=== PATIENT | female | born 1950 | race Caucasian/White ===

== ENCOUNTER 2016-04-21 05:52 | Emergency (ER) | payer OTHER, MEDICARE ==
[2016-04-21 06:00] VITALS: BP 127/88; PULSE 87; TEMP 98.2; BMI 29.6
--- NOTE | 2016-04-21 06:15 | PDOC ---
History of Present Illness - General Chief Complaint: Laceration Stated Complaint: HEAD LAC Time Seen by Provider: 04/21/16 06:03 History Source: Patient Exam Limitations: No Limitations - History of Present Illness Initial Comments: 04/21/16 06:11 66 Y F CAD, depresion, COPD, got up to go to the BR and lost her balance. fell and hit her head, no loc, no n/v. ambulatory. got up on her own and called a friend. in the ed, in nad, ambulatory w/ normal gait Past History - Past Medical History Allergies/Adverse Reactions: Allergies Allergy/AdvReac Type Severity Reaction Status Date / Time Penicillins Allergy Severe anaphylaxis Verified 11/05/14 09:41 mirtazapine [From Remeron] Allergy Verified 11/05/14 09:41 Home Medications: Ambulatory Orders Arformoterol Tartrate [Brovana -] 1 neb NEB DAILY 05/10/13 Aspirin 81 mg PO DAILY 05/10/13 Atorvastatin Ca [Lipitor] 10 mg PO HS 05/10/13 Cholecalciferol (Vitamin D3) [Vitamin D3] 4,000 unit PO DAILY 05/10/13 Iron,Carbonyl [Feosol] 325 mg PO DAILY 05/10/13 Mometasone Furoate [Asmanex 220Mcg -] 2 inh IH DAILY 05/10/13 Duloxetine HCl [Cymbalta -] 60 mg PO BID 03/02/14 Folic Acid 0.8 mg PO DAILY 03/02/14 Gabapentin [Neurontin] 300 mg PO AM 03/02/14 Melatonin 10 mg PO HS 03/02/14 Nebivolol HCl [Bystolic] 2.5 mg PO DAILY 03/02/14 Gabapentin [Neurontin -] 400 mg PO HS 09/04/14 Trazodone HCl [Desyrel -] 50 mg PO HS tablet 09/06/14 Albuterol 0.083% Nebulizer Soldead [Ventolin 0.083% Nebulizer Soln -] 1 neb NEB DAILY 11/05/14 Albuterol Sulfate [Proair Hfa -] 1 - 2 inh PO BID 11/05/14 Calcium Carbonate/Vitamin D3 [Calcium 600 + Vit D Softgel] 1 each PO DAILY 11/05 Clonazepam 0.5 mg PO BID 11/05/14 Clonazepam 1 mg PO PRN PRN 11/05/14 Tiotropium [place] [Spiriva] 1 inh PO DAILY 11/05/14 Ziprasidone [Geodon -] 40 mg PO BID 11/05/14 Anemia: Yes (pernicious) Asthma: Yes Cancer: No Cardiac Disorders: Yes (aortic insufficiency,cad, mi) CVA: No COPD: Yes CHF: No Dementia: No Diabetes: No GI Disorders: Yes (gastritis,ibs,gerd,hiatal hernia,peptic ulcer, rectal bleeding) Disorders: No HTN: Yes Hypercholesterolemia: No Liver Disease: No Suicide Attempt (Hx): No Seizures: No Thyroid Disease: No - Surgical History Abdominal Surgery: No Appendectomy: Yes Cardiac Surgery: Yes (ANGIOPLASTY WITHOUT STENTS) Cholecystectomy: No Lung Surgery: No Neurologic Surgery: No Orthopedic Surgery: Yes (right ankle/tibia/fibula compound fracture) - Immunization History Immunization Up to Date: Yes - Psycho/Social/Smoking Cessation Hx Anxiety: Yes Suicidal Ideation: No Smoking Status: Yes Smoking History: Former smoker Years of Tobacco Use: 35 Have you smoked in the past 12 months: No Number of Cigarettes Smoked Daily: 0 If you are a former smoker, when did you quit?: 3-4 years ago Information on smoking cessation initiated: No Hx Alcohol Use: No Drug/Substance Use Hx: No Substance Use Type: None Hx Substance Use Treatment: No Review of Systems - Review of Systems Able to Perform ROS?: Yes Is the patient limited Czech proficient: No Constitutional: No: Symptoms Reported HEENTM: No: Symptoms Reported Cardiac (ROS): No: Symptoms Reported Musculoskeletal: No: Symptoms Reported Neurological: No: Symptoms reported All Other Systems: Reviewed and Negative *Physical Exam - Vital Signs Last Vital Signs Temp Pulse Resp BP Pulse Ox 98.2 F 87 20 127/88 97 04/21/16 05:58 04/21/16 05:58 04/21/16 05:58 04/21/16 05:58 04/21/16 05:58 - Physical Exam General Appearance: Yes: Nourished, Appropriately Dressed. No: Apparent Distress HEENT: positive: EOMI, MURPHY Neck: positive: Supple. negative: Tender Respiratory/Chest: positive: Lungs Clear. negative: Respiratory Distress Cardiovascular: positive: Regular Rhythm, Regular Rate Musculoskeletal: positive: Normal Inspection. negative: Vertebral Tenderness Extremity: positive: Normal Capillary Refill, Normal Range of Motion Integumentary: positive: Normal Color, Other (v-shaped superficial laceration re supracilliary region. 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 NML intact, Fully Oriented, Alert, Normal Mood/ Affect, Normal Response, Motor Strength 5/5 Procedures - Laceration/Wound Repair Right Frontal Wound Length: to 2.5 cm Wound Explored: clean Wound's Depth, Shape: superficial Irrigated w/ Saline: Yes Betadine Prep: No Wound Repaired With: Dermabond Sterile Dressing Applied: Yes *DC/Admit/Observation/Transfer Diagnosis at time of Disposition: Laceration of forehead Qualifiers: Encounter type: initial encounter Qualified Code(s): S01.81XA - Laceration without foreign body of other part of head, initial encounter - Discharge Dispostion Disposition: HOME Condition at time of disposition: Good - Referrals Referrals: Geraldine Pierre MD [Primary Care Provider] - Call tomorrow - Patient Instructions Additional Instructions: KEEP WOUND DRY FOR 48 HOURS. AFTER, REGULAR SOAP AND WATER DO NOT REMOVE STERI-STRIPS. THEY WOULD FALL ON THEIR OWN TYLENOL IF HEAD ACHE RETURN IF BLEEDING, HEAD ACHE, NAUSEA, VOMITING SEE YOUR DOCTOR WITHIN 24 HOURS
== END 2016-04-21 06:26 | disposition home or self-care (01) ==
LOC: FER 05:52
PROC: 0HQ1XZZ Repair Face Skin, External Approach (ICD-10-PCS; principal; 2016-04-21)
DX: S01.81XA Laceration without foreign body of other part of head, initial encounter (principal); W18.39XA Other fall on same level, initial encounter; Y93.89 Activity, other specified; Y92.003 Bedroom of unspecified non-institutional (private) residence as the place of occurrence of the external cause; D51.0 Vitamin B12 deficiency anemia due to intrinsic factor deficiency; J45.909 Unspecified asthma, uncomplicated; I25.2 Old myocardial infarction; I25.10 Atherosclerotic heart disease of native coronary artery without angina pectoris; I10 Essential (primary) hypertension; Z87.891 Personal history of nicotine dependence
CPT/HCPCS: 99282-25

== ENCOUNTER 2017-04-07 07:55 | Day surgery (SDC) | payer OTHER, MEDICARE ==
[2017-04-06 14:31] VITALS: BMI 28.9
[2017-04-07] MEDS ORDERED: PROPOFOL 20 ML ONE ×2 (09:15)
[2017-04-07 10:15] VITALS: TEMP 97.8
[2017-04-07 11:52] VITALS: BP 125/72; PULSE 72
--- NOTE | 2017-04-11 11:01 | PATH ---
Surgical Pathology Report Patient Name: ASHLEY MAYBERRY [facility]. Rec. #: [id number] /Age/Gender: 1950 (Age: 67) / F Account: [id number] Location: ASU-ENDOSCOPY Taken: 04/07/2017 Received: 04/07/2017 Reported: 04/11/2017 Physicians: Guillaume Dean M.D. Specimen(s) Received A: BX ILEOCECAL VALVE B: BX PROXIMAL RIGHT COLON C: BX MID RIGHT COLON Clinical History Preoperative diagnosis: Family history of colon cancer, history of colon polyps Postoperative diagnosis: Colon polyps, diverticulosis Final Diagnosis A. COLON, CECUM AND ILEOCECAL VALVE, BIOPSY: MULTIPLE PORTIONS OF TUBULAR ADENOMA. B. COLON, PROXIMAL RIGHT, BIOPSY: TUBULAR ADENOMA C. COLON, MID RIGHT, BIOPSY: COLONIC MUCOSA WITH NO PATHOLOGIC CHANGES. SCANT SUBMUCOSAL TISSUE PRESENT. Comment: Recommend correlation with clinical findings and follow up as clinically indicated. Electronically Signed Jose Enrique M.D. Gross Description A. Received in formalin, labeled "biopsy ileocecal valve polyp x2" are 7 schaefer, irregular portions of soft tissue ranging from 0.2-0.3 cm. in greatest dimension. The specimens are submitted in toto in one cassette. B. Received in formalin, labeled "biopsy proximal right colon polyp" are 6 schaefer, irregular portions of soft tissue ranging from 0.1-0.4 cm. in greatest dimension. The specimens are submitted in toto in one cassette. C. Received in formalin, labeled "biopsy mid right colon" is a schaefer, irregular portion of soft tissue measuring 0.5 cm. in greatest dimension. The specimen is submitted in toto in one cassette. 04/07/201704/07/2017
== END 2017-04-07 11:40 | disposition home or self-care (01) ==
LOC: JASU-ENDO 07:55
PROVIDERS: ATTEND Internal Medicine Gastroenterology
PROC: 0DBC8ZX Excision of Ileocecal Valve, Via Natural or Artificial Opening Endoscopic, Diagnostic (ICD-10-PCS; 2017-04-07)
PROC: 0DBH8ZX Excision of Cecum, Via Natural or Artificial Opening Endoscopic, Diagnostic (ICD-10-PCS; 2017-04-07)
PROC: 0DBK8ZX Excision of Ascending Colon, Via Natural or Artificial Opening Endoscopic, Diagnostic (ICD-10-PCS; principal; 2017-04-07 09:30)
DX: Z12.11 Encounter for screening for malignant neoplasm of colon (principal); Z80.0 Family history of malignant neoplasm of digestive organs; Z86.010 Personal history of colon polyps; K63.5 Polyp of colon; K57.30 Diverticulosis of large intestine without perforation or abscess without bleeding; K64.8 Other hemorrhoids
CPT/HCPCS: 88305-TC

== ENCOUNTER 2017-06-19 14:13 | Emergency (ER) | payer OTHER, MEDICARE ==
[2017-06-19 14:24] VITALS: TEMP 97.3; BMI 68.0
--- NOTE | 2017-06-19 14:26 | PDOC ---
Rapid Medical Evaluation Time Seen by Provider: 06/19/17 14:19 Medical Evaluation: Allergies Allergy/AdvReac Type Severity Reaction Status Date / Time Penicillins Allergy Severe anaphylaxis Verified 06/19/17 14:18 mirtazapine [From Remeron] Allergy Verified 06/19/17 14:18 03 14:19 I have performed a brief in-person evaluation of this patient. This patient presents with a chief complaint of left knee pain x 4 days Sent from [facility] urgent care for admission, as per her primary physician Pertinent physical exam findings: NAD unlabored breathing left knee , warm and tender to the touch, palpable cyst on medial aspect of left knee I have ordered the following: The patient has disc of xray and ultrasound of left knee on person ordered labs only and iv access The patient will proceed to the ED for further evaluation.
[2017-06-19 14:45] LABS: BASO % 0.9 % (0-2.0); EOS % 2.3 % (0-4.5); HEMATOCRIT 37.7 % (32.4-45.2); HEMOGLOBIN 12.8 GM/dL (10.7-15.3); LYMPH % 25.3 % (8-40); MCH 29.7 pg (25.7-33.7); MCHC 33.9 g/dl (32.0-36.0); MEAN CELL VOLUME 87.9 fl (80-96); MEAN PLT VOLUME 8.1 fl (7.5-11.1); MONO % 8.4 % (3.8-10.2); NEUT % 63.1 % (42.8-82.8); PLATELET COUNT 342 K/MM3 (134-434); RBC 4.29 M/mm3 (3.60-5.2); RDW 13.9 % (11.6-15.6); WHITE BLOOD COUNT 8.6 K/mm3 (4.0-10.0)
[2017-06-19 15:12] LABS: ALBUMIN 3.6 g/dl (3.4-5.0); ALK PHOS 82 U/L (45-117); ANION GAP 11 (8-16); BILIRUBIN,TOTAL 0.4 mg/dL (0.2-1.0); BLOOD UREA NITROGEN 11 mg/dL (7-18); CALCIUM 9.2 mg/dL (8.5-10.1); CHLORIDE 103 mmol/L (98-107); CO2 26 mmol/L (21-32); CREATININE 0.8 mg/dL (0.55-1.02); GLUCOSE,RANDOM 81 mg/dL (74-106); POTASSIUM 4.3 mmol/L (3.5-5.1); SGOT/AST 19 U/L (15-37); SGPT/ALT 18 U/L (12-78); SODIUM 140 mmol/L (136-145); TOT PROT 6.4 g/dl (6.4-8.2)
--- NOTE | 2017-06-19 16:38 | PDOC ---
History of Present Illness - General History Source: Patient Exam Limitations: No Limitations - History of Present Illness Initial Comments: 06/19/17 16:43 The patient is a year old female, with a significant past medical history of hypertension, hyperlipidemia, CAD (on aspirin) s/p MT/stent pre-1999 , COPD, post-op DVT, CHF, anxiety, and depression, who presents to the emergency department via EMS with, pain to her left knee. She describes her knee pain to be chronic, however, worsening today and radiating down and to the back of her leg. She reports going to Urgent Care earlier today and had an ultrasound done which was clear for DVTs. She reports the doctors at urgent care transferred her for admission and further evaluation due to her inability to ambulate or put weight on her knee for periods of time without pain. She denies recent fevers, chills, headache or dizziness. She denies recent nausea, vomit, diarrhea or constipation. She denies recent dysuria, frequency, urgency or hematuria. She denies recent chest pain or shortness of breath. Allergies: Penicillins, Mirtazapine Primary Care Physician: Dr. Geraldine Pierre <Robert Savage - Last Filed: 06/19/17 16:43> - General History Source: Patient Exam Limitations: No Limitations <Lata Allen - Last Filed: 06/19/17 17:36> - General Chief Complaint: Pain Stated Complaint: LEG PAIN Time Seen by Provider: 06/19/17 14:19 Past History <Robert Savage - Last Filed: 06/19/17 16:43> - Past Medical History Anemia: Yes Asthma: Yes Cancer: No Cardiac Disorders: Yes (aortic insufficiency,cad, mi, CAD) CVA: No COPD: Yes CHF: No Dementia: No Diabetes: No GI Disorders: Yes (PEPTIC ULCER, HIATAL HERNIA, IBS, COLON POLYPS, GERD) Disorders: No HTN: Yes Hypercholesterolemia: No Liver Disease: No Seizures: No Thyroid Disease: No - Surgical History Abdominal Surgery: No Appendectomy: Yes Cardiac Surgery: Yes (ANGIOPLASTY WITHOUT STENTS) Cholecystectomy: No Lung Surgery: No Neurologic Surgery: No Orthopedic Surgery: Yes (right ankle/tibia/fibula compound fracture) - Immunization History Immunization Up to Date: Yes - Suicide/Smoking/Psychosocial Hx Smoking Status: Yes Smoking History: Former smoker Years of Tobacco Use: 35 Have you smoked in the past 12 months: No Number of Cigarettes Smoked Daily: 0 If you are a former smoker, when did you quit?: 3-4 years ago Information on smoking cessation initiated: No Hx Alcohol Use: No Drug/Substance Use Hx: No Substance Use Type: None Hx Substance Use Treatment: No <ChandaannmarieLata - Last Filed: 06/19/17 17:36> - Past Medical History Allergies/Adverse Reactions: Allergies Allergy/AdvReac Type Severity Reaction Status Date / Time Penicillins Allergy Severe anaphylaxis Verified 06/19/17 14:18 mirtazapine [From Remeron] Allergy Verified 06/19/17 14:18 Home Medications: Ambulatory Orders Aspirin 81 mg PO DAILY 05/10/13 Atorvastatin Ca [Lipitor] 10 mg PO HS 05/10/13 Iron,Carbonyl [Feosol] 325 mg PO DAILY 05/10/13 Mometasone Furoate [Asmanex 220Mcg -] 2 inh IH DAILY 05/10/13 Duloxetine HCl [Cymbalta -] 60 mg PO BID 03/02/14 Gabapentin [Neurontin] 300 mg PO AM 03/02/14 Gabapentin [Neurontin -] 400 mg PO HS 09/04/14 traZODone HCL [Desyrel -] 50 mg PO HS tablet 09/06/14 Albuterol 0.083% Nebulizer [place] [Ventolin 0.083% Nebulizer Soln -] 1 neb NEB DAILY 11/05/14 Albuterol Sulfate [Proair Hfa -] 1 - 2 inh PO BID 11/05/14 Clonazepam 0.1 mg PO BID 11/05/14 Tiotropium [place] [Spiriva] 1 inh PO DAILY 11/05/14 Ziprasidone [Geodon -] 40 mg PO BID 11/05/14 Ranolazine [Ranexa] 500 mg PO DAILY 04/06/17 Calcium Carbonate [Calcium] 1,200 mg PO DAILY 04/07/17 Cholecalciferol (Vitamin D3) [Vitamin D3] 5,000 unit PO DAILY 04/07/17 Cyanocobalamin Vit B-12 Inj. [Vitamin B12 Injection -] 1,000 mcg IJ PRN Duloxetine HCl [Cymbalta -] 60 mg PO HS 12/29/17 Ferrous Sulfate [Iron] 325 mg PO DAILY 04/07/17 Folic Acid 1 mg PO DAILY 04/07/17 Thiamine HCl [Vitamin B-1] 50 mg PO DAILY 04/07/17 Review of Systems - Review of Systems Able to Perform ROS?: Yes Comments:: 06/19/17 16:44 CONSTITUTIONAL: Absent: fever, no chills, no fatigue EYES: Absent: visual changes ENT: Absent: ear pain, no sore throat CARDIOVASCULAR: Absent: chest pain, no palpitations RESPIRATORY: Absent: cough, no SOB GI: Absent: abdominal pain, no nausea, no vomiting, no constipation, no diarrhea GENITOURINARY: Absent: dysuria, no frequency, no hematuria MUSKULOSKELETAL: Present: +Left posterior knee pain. Absent: back pain SKIN: Absent: rash NEURO: Absent: headache All Other Systems: Reviewed and Negative <Robert Savage - Last Filed: 06/19/17 16:43> - Review of Systems Musculoskeletal: Yes: Joint Pain. No: Joint Swelling, Muscle Weakness, Joint Stiffness Integumentary: No: Bruising, Erythema Neurological: Yes: Weakness. No: Paresthesia, Tingling, Tremors Hematologic/Lymphatic: No: Symptoms Reported <Lata Allen - Last Filed: 06/19/17 17:36> *Physical Exam - Vital Signs Last Vital Signs Temp Pulse Resp BP Pulse Ox 97.3 F L 66 17 143/75 96 06/19/17 14:19 06/19/17 14:19 06/19/17 14:19 06/19/17 14:19 06/19/17 14:19 - Physical Exam Comments: 06/19/17 16:44 Knee: +2 Pitting edema to left foot. Tenderness to the posterior left knee. <Robert Savage - Last Filed: 06/19/17 16:43> - Vital Signs Last Vital Signs Temp Pulse Resp BP Pulse Ox 97.3 F L 66 17 143/75 96 06/19/17 14:19 06/19/17 14:19 06/19/17 14:19 06/19/17 14:19 06/19/17 14:19 - Physical Exam General Appearance: Yes: Appropriately Dressed Respiratory/Chest: positive: Lungs Clear, Normal Breath Sounds Cardiovascular: positive: Regular Rhythm, Regular Rate Musculoskeletal: positive: Decreased Range of Motion (to the left knee realted to pain. ) Extremity: positive: Normal Capillary Refill, Normal Inspection. negative: Normal Range of Motion, Swelling, Calf Tenderness, Erythema, Inflammation Integumentary: positive: Normal Color, Dry. negative: Swelling, Ecchymosis, Bruising Neurologic: positive: Alert <Lata Allen - Last Filed: 06/19/17 17:36> ED Treatment Course - LABORATORY CBC & Chemistry Diagram: 06/19/17 14:33 06/19/17 14:33 - ADDITIONAL ORDERS Additional order review: Laboratory Results 06/19/17 14:33 Sodium 140 Potassium 4.3 Chloride 103 Carbon Dioxide 26 Anion Gap 11 BUN 11 Creatinine 0.8 Creat Clearance w eGFR > 60 Random Glucose 81 Calcium 9.2 Total Bilirubin 0.4 AST 19 ALT 18 Alkaline Phosphatase 82 Total Protein 6.4 Albumin 3.6 06/19/17 14:33 RBC 4.29 MCV 87.9 MCHC 33.9 RDW 13.9 MPV 8.1 Neutrophils % 63.1 Lymphocytes % 25.3 D Monocytes % 8.4 Eosinophils % 2.3 Basophils % 0.9 <Robert Savage - Last Filed: 06/19/17 16:43> - LABORATORY CBC & Chemistry Diagram: 06/19/17 14:33 06/19/17 14:33 - ADDITIONAL ORDERS Additional order review: Laboratory Results 06/19/17 14:33 Sodium 140 Potassium 4.3 Chloride 103 Carbon Dioxide 26 Anion Gap 11 BUN 11 Creatinine 0.8 Creat Clearance w eGFR > 60 Random Glucose 81 Calcium 9.2 Total Bilirubin 0.4 AST 19 ALT 18 Alkaline Phosphatase 82 Total Protein 6.4 Albumin 3.6 06/19/17 14:33 RBC 4.29 MCV 87.9 MCHC 33.9 RDW 13.9 MPV 8.1 Neutrophils % 63.1 Lymphocytes % 25.3 D Monocytes % 8.4 Eosinophils % 2.3 Basophils % 0.9 <Lata Allen - Last Filed: 06/19/17 17:36> Medical Decision Making - Medical Decision Making 06/19/17 16:36 A/P: Patient is a 67-year-old female was transferred from urgent care via ambulance for left knee pain. Patient reports she was seen at urgent care for left posterior knee pain, ultrasound and x-ray demonstrated arthritic changes and synovial cyst, Giron's cyst. They sent her to emergency department because patient is unable to ambulate and lives alone was sent by Dr. Geraldine Pierre for admission, inability to ambulate. Only able to perform examination to legs , +2 pitting edema. Pain to left posterior knee, no fluid appreciated. After examination is deferred, patient unable to stand to be examined on examination table. Patient in wheelchair. Patient sent to main emergency department for higher level of care. 06/19/17 16:41 <Lata Allen - Last Filed: 06/19/17 17:36> *DC/Admit/Observation/Transfer - Attestations Scribe Attestion: 06/19/17 16:45 Documentation prepared by Robert Savage, acting as medical billing instructor for Lata Allen NP. <Robert Savage - Last Filed: 06/19/17 16:43> <Lata Allen - Last Filed: 06/19/17 17:36> Diagnosis at time of Disposition: Knee pain Qualifiers: Chronicity: acute Laterality: left Qualified Code(s): M25.562 - Pain in left knee - Referrals Referrals: Geraldine Pierre MD [Primary Care Provider] - - Patient Instructions - Post Discharge Activity
[2017-06-19] MEDS ORDERED: KETOROLAC TROMETHAMINE 30 MG/1 ML VIAL IVPUSH ONE (17:32)
--- NOTE | 2017-06-19 17:32 | PDOC ---
*Physical Exam - Vital Signs Last Vital Signs Temp Pulse Resp BP Pulse Ox 97.3 F L 66 17 143/75 96 06/19/17 14:19 06/19/17 14:19 06/19/17 14:19 06/19/17 14:19 06/19/17 14:19 - Physical Exam General Appearance: Yes: Appropriately Dressed. No: Apparent Distress HEENT: positive: Normal Voice Neck: positive: Supple Respiratory/Chest: negative: Respiratory Distress Extremity: positive: Normal Inspection, Tender. negative: Swelling Integumentary: positive: Dry, Warm Neurologic: positive: Fully Oriented, Alert, Normal Mood/Affect ED Treatment Course - LABORATORY CBC & Chemistry Diagram: 06/19/17 14:33 06/19/17 14:33 - ADDITIONAL ORDERS Additional order review: Laboratory Results 06/19/17 14:33 Sodium 140 Potassium 4.3 Chloride 103 Carbon Dioxide 26 Anion Gap 11 BUN 11 Creatinine 0.8 Creat Clearance w eGFR > 60 Random Glucose 81 Calcium 9.2 Total Bilirubin 0.4 AST 19 ALT 18 Alkaline Phosphatase 82 Total Protein 6.4 Albumin 3.6 06/19/17 14:33 RBC 4.29 MCV 87.9 MCHC 33.9 RDW 13.9 MPV 8.1 Neutrophils % 63.1 Lymphocytes % 25.3 D Monocytes % 8.4 Eosinophils % 2.3 Basophils % 0.9 Medical Decision Making - Medical Decision Making 06/19/17 17:28 Patient was transferred to [facility] ED from [facility] track Patient is a 67-year-old F, with past medical history of hypertension, hyperlipidemia, CAD, on aspirin, MT, COPD, uses oxygen at night only, DVT, CHF, anxiety. depression, arthritis, who was sent to ER from urgent care after being diagnosed with a giron's cyst to left knee on ultrasound after patient presented with left knee pain 4 days. Patient states she can hardly bear weight with her cane. States she cannot take any narcotics as she is a recovering alcoholic. Has not taken any pain meds at home and no pain meds was given at urgent care. Patient well-appearing, in no apparent distress with no significant swelling to right knee but has some tenderness to popliteal fossa and calf. Of note, ultrasound done in urgent care center was negative for DVT. X-ray of left knee consistent with arthritic changes as per report. Will give pain meds and reassess 06/19/17 19:00 As per ED attg, case was d/w pt's PMD, Dr Pierre, who agrees w/ pain control in ED and reassess. States if discharged, pt should go w/ rx for meloxicam and medrol dose pack. to arrange out-pt MRI 06/21/17 10:35 Pt improved, able to bear weight w/ cane and was discharge by Dr Schmidt *DC/Admit/Observation/Transfer Diagnosis at time of Disposition: Giron's cyst of knee Knee pain Qualifiers: Chronicity: acute Laterality: left Qualified Code(s): M25.562 - Pain in left knee Bakers cyst Qualifiers: Laterality: left Qualified Code(s): M71.22 - Synovial cyst of popliteal space [ Giron], left knee - Discharge Dispostion Disposition: HOME Condition at time of disposition: Stable - Prescriptions Prescriptions: Meloxicam [Mobic] 7.5 mg PO DAILY PRN #10 tablet PRN Reason: Pain Level 6-10 Methylprednisolone [Medrol Dose Noe] 4 mg PO ASDIR #21 tablet Omeprazole 20 mg PO DAILY #14 tablet.dr - Referrals Referrals: Geraldine Pierre MD [Primary Care Provider] - - Patient Instructions Printed Discharge Instructions: Alice Fragoso, DI for Giron's Cyst Additional Instructions: 1. package pick up your drugs at your pharmacy 2, call Dr Pierre's office tomorrow and they will make an orthopedist referral 3. take your medication as directed - Post Discharge Activity
[2017-06-19] MEDS ORDERED: KETOROLAC TROMETHAMINE 30 MG/1 ML VIAL ONE (17:44)
[2017-06-19 18:47] VITALS: BP 135/74; PULSE 78
[2017-06-19] MEDS ORDERED: DEXAMETHASONE SOD PHOSPHATE 20 MG/5 ML VIAL IVPB STA (18:55)
[2017-06-19] MEDS ORDERED: PANTOPRAZOLE 40 MG TABLET (FP) PO ONE (19:00)
--- NOTE | 2017-06-19 19:03 | PDOC ---
*Physical Exam - Vital Signs Last Vital Signs Temp Pulse Resp BP Pulse Ox 97.3 F L 78 16 135/74 95 06/19/17 14:19 06/19/17 18:46 06/19/17 18:46 06/19/17 18:46 06/19/17 18:46 ED Treatment Course - LABORATORY CBC & Chemistry Diagram: 06/19/17 14:33 06/19/17 14:33 - ADDITIONAL ORDERS Additional order review: Laboratory Results 06/19/17 14:33 Sodium 140 Potassium 4.3 Chloride 103 Carbon Dioxide 26 Anion Gap 11 BUN 11 Creatinine 0.8 Creat Clearance w eGFR > 60 Random Glucose 81 Calcium 9.2 Total Bilirubin 0.4 AST 19 ALT 18 Alkaline Phosphatase 82 Total Protein 6.4 Albumin 3.6 06/19/17 14:33 RBC 4.29 MCV 87.9 MCHC 33.9 RDW 13.9 MPV 8.1 Neutrophils % 63.1 Lymphocytes % 25.3 D Monocytes % 8.4 Eosinophils % 2.3 Basophils % 0.9 - Medications Given in the ED: ED Medications Discontinued Medications Generic Name Dose Route Start Last Admin Trade Name Gia PRN Reason Stop Dose Admin Ketorolac Tromethamine 30 mg 06/19/17 17:32 06/19/17 18:00 Toradol Injection - IVPUSH 06/19/17 17:33 30 mg ONCE ONE Administration *DC/Admit/Observation/Transfer Diagnosis at time of Disposition: Knee pain Qualifiers: Chronicity: acute Laterality: left Qualified Code(s): M25.562 - Pain in left knee Giron's cyst of knee Qualifiers: Laterality: left Qualified Code(s): M71.22 - Synovial cyst of popliteal space [ Giron], left knee - Discharge Dispostion Disposition: HOME Condition at time of disposition: Stable - Referrals Referrals: Geraldine Pierre MD [Primary Care Provider] - - Patient Instructions Printed Discharge Instructions: Alice Fragoso, DI for Giron's Cyst Additional Instructions: 1. sweet pickle maker your drugs at your pharmacy 2, call Dr Pierre's office tomorrow and they will make an orthopedist referral 3. take your medication as directed - Post Discharge Activity
[2017-06-19] MEDS ORDERED: PANTOPRAZOLE 40 MG TABLET (FP) ONE (19:09)
[2017-06-19] MEDS ORDERED: DEXAMETHASONE SOD PHOSPHATE 10 MG/1 ML VIAL ONE (19:09)
== END 2017-06-19 19:17 | disposition home or self-care (01) ==
LOC: JERFT 14:13 → JER 14:13
PROC: 3E033GC Introduction of Other Therapeutic Substance into Peripheral Vein, Percutaneous Approach (ICD-10-PCS; principal; 2017-06-19)
PROC: 3E0333Z Introduction of Anti-inflammatory into Peripheral Vein, Percutaneous Approach (ICD-10-PCS; 2017-06-19)
DX: M71.22 Synovial cyst of popliteal space [Baker], left knee (principal); M13.862 Other specified arthritis, left knee; I25.2 Old myocardial infarction; I25.10 Atherosclerotic heart disease of native coronary artery without angina pectoris; I10 Essential (primary) hypertension; Z95.5 Presence of coronary angioplasty implant and graft; J44.9 Chronic obstructive pulmonary disease, unspecified; I50.9 Heart failure, unspecified; Z86.718 Personal history of other venous thrombosis and embolism; Z87.19 Personal history of other diseases of the digestive system; Z79.82 Long term (current) use of aspirin
CPT/HCPCS: 36415; 80053; 85025; 96374; 96375; 99283-25

== ENCOUNTER 2018-10-15 08:09 | Inpatient (IN) | payer OTHER, MEDICARE ==
--- NOTE | 2018-10-15 07:46 | HP ---
Admitting History and Physical - Admission Chief Complaint: left knee osteoarthritis x years History of Present Illness: 68 year old female presents in regard to their left knee. Longstanding history of left knee osteoarthritis. Patient complains of pain, limited ROM, difficulty ambulating and difficulty completing ADLs. Patient has failed conservative treatment measures including PO medications, injections, exercise programs and activity modification. At this point, patient wishes to proceed with surgical intervention, a left total knee arthroplasty - MAKOplasty. - Past Medical History Cardiovascular: Yes: CAD, Deep Vein Thrombosis, CA Pulmonary: Yes: COPD, O2 Dependent Renal/: Yes: Renal Calculi Musculoskeletal: Yes: Osteoarthritis - Past Surgical History Past Surgical History: Yes: Stent Additional Past Surgical History: See written history & physical for additional surgical history. - Smoking History Smoking history: Former smoker Have you smoked in the past 12 months: No Aproximately how many cigarettes per day: 0 If you are a former smoker, when did you quit?: 2008 - Alcohol/Substance Use Hx Alcohol Use: No (RECOVERY X 1984) History of Substance Use: reports: None - Social History ADL: Independent History of Recent Travel: No Home Medications - Allergies Allergies/Adverse Reactions: Allergies Allergy/AdvReac Type Severity Reaction Status Date / Time Penicillins Allergy Severe anaphylaxis Verified 06/19/17 14:18 mirtazapine [From Remeron] AdvReac Intermediate AGGRESSIVE Verified 10/04/18 12: 05 WITH HALLUCINATIONS - Home Medications Home Medications: Ambulatory Orders Aspirin 81 mg PO HS 05/10/13 Atorvastatin Ca [Lipitor] 10 mg PO HS 05/10/13 Mometasone Furoate [Asmanex 220Mcg -] 2 inh IH DAILY 05/10/13 Gabapentin [Neurontin] 300 mg PO DAILY 03/02/14 Gabapentin [Neurontin -] 400 mg PO HS 09/04/14 traZODone HCL [Desyrel -] 50 mg PO HS tablet 09/06/14 Albuterol 0.083% Nebulizer Soledad [Ventolin 0.083% Nebulizer Soln -] 1 neb NEB HS 11/05/14 Albuterol Sulfate [Proair Hfa -] 1 - 2 inh PO BID 11/05/14 Tiotropium [place] [Spiriva] 1 inh PO DAILY 11/05/14 Ziprasidone [Geodon -] 40 mg PO HS 11/05/14 Ranolazine [Ranexa] 500 mg PO BID 04/06/17 Calcium Carbonate [Calcium] 1,200 mg PO DAILY 04/07/17 Cholecalciferol (Vitamin D3) [Vitamin D3] 5,000 unit PO DAILY 04/07/17 Cyanocobalamin Vit B-12 Inj. [Vitamin B12 Injection -] 1,000 mcg IJ PRN Duloxetine HCl [Cymbalta -] 60 mg PO HS 04/07/17 Ferrous Sulfate [Iron] 325 mg PO DAILY 04/07/17 Folic Acid 1 mg PO DAILY 04/07/17 Thiamine HCl [Vitamin B-1] 50 mg PO DAILY 04/07/17 Meloxicam [Mobic] 7.5 mg PO DAILY PRN #10 tablet 06/19/17 Clonazepam 0.5 mg PO BID 10/04/18 Metoprolol Tartrate 12.5 mg PO DAILY 10/04/18 Review of Systems - Review of Systems Musculoskeletal: reports: Crepitus (left knee), Decreased ROM (left knee), Joint Pain (left knee), Joint Swelling (left knee) Physical Examination Constitutional: Yes: Well Nourished, No Distress Eyes: Yes: Conjunctiva Clear HENT: Yes: Atraumatic Neck: Yes: Supple Cardiovascular: Yes: Regular Rate and Rhythm Respiratory: Yes: Regular Gastrointestinal: Yes: Soft ...Rectal Exam: Yes: Deferred Musculoskeletal: Yes: Joint Stiffness (left knee), Joint Swelling (left knee) Assessment/Plan 68 year old female presents in regard to their left knee. Longstanding history of left knee osteoarthritis. Patient complains of pain, limited ROM, difficulty ambulating and difficulty completing ADLs. Patient has failed conservative treatment measures including PO medications, injections, exercise programs and activity modification. At this point, patient wishes to proceed with surgical intervention, a left total knee arthroplasty - MAKOplasty. Pros, cons, risks benefits and alternatives of a left total knee arthroplasty, MAKOplasty were discussed with the patient at length. Patient confirms their understanding and consents to proceed with a left total knee arthroplasty, MAKOplasty.
[~2018-10-15 08:09] MED LIST: CEFAZOLIN 2 GM in DEXTROSE 5%-WATER - 50 ML IVPB ONE; CELECOXIB 200 MG CAPSULE PO ONE; GABAPENTIN 300 MG CAPSULE (FP) PO ONE; PANTOPRAZOLE 40 MG TABLET (FP) PO ONE; TRANEXAMIC ACID 1000 MG/10 ML VIAL IVPUSH ONE; oxyCODONE HCL 10 MG SUSTAINED ACTING TABLET PO ONE
[2018-10-15 09:33] VITALS: BMI 31.6
[2018-10-15] MEDS ORDERED: BUPIVACAINE LIPOSOME/PF (EXPAREL) 266 MG/20 ML VIAL ONE (10:44)
[2018-10-15] MEDS ORDERED: MIDAZOLAM HCL 2 MG/2 ML SINGLE DOSE VIAL ONE (10:44)
[2018-10-15] MEDS ORDERED: SODIUM CHLORIDE 0.9% P/F 10 ML VIAL IJ ONE (10:44)
[2018-10-15] MEDS ORDERED: ONDANSETRON 4 MG/2 ML VIAL ONE ×2 (11:52→14:24)
[2018-10-15] MEDS ORDERED: ceFAZolin SODIUM 1 GM VIAL ONE ×3 (11:52→12:22)
[2018-10-15] MEDS ORDERED: TRANEXAMIC ACID 1000 MG/10 ML VIAL ONE ×2 (11:52→12:05)
[2018-10-15] MEDS ORDERED: DEXAMETHASONE SOD PHOSPHATE 4 MG/1 ML VIAL ONE ×2 (11:52→14:24)
[2018-10-15] MEDS ORDERED: VANCOMYCIN 1,000 MG VIAL (RESTRICTED TO ID ONLY) ONE (12:05)
[2018-10-15] MEDS ORDERED: PHENYLEPHRINE HCL 10 MG/1 ML SINGLE DOSE VIAL ONE (12:09)
[2018-10-15] MEDS ORDERED: ONDANSETRON 4 MG/2 ML VIAL IVPUSH PRN ×2 (13:32→15:30)
[2018-10-15] MEDS ORDERED: oxyCODONE HCL 5 MG TABLET PO PRN (13:34)
[2018-10-15] MEDS ORDERED: VANCOMYCIN 1,000 MG VIAL (RESTRICTED TO ID ONLY) IVPB ONE (13:38)
[2018-10-15] MEDS ORDERED: TRANEXAMIC ACID 1000 MG/10 ML VIAL IVPUSH ONE (13:39)
[2018-10-15] MEDS ORDERED: ACETAMINOPHEN INJECTION 100 ML IVPB ONE (14:45)
[2018-10-15] MEDS ORDERED: KETOROLAC TROMETHAMINE 30 MG/1 ML VIAL ONE (14:45)
[2018-10-15] MEDS ORDERED: traMADol HCL 50 MG TABLET ONE (14:45)
--- NOTE | 2018-10-15 15:11 | OP ---
Operative Note - Note: Operative Date: 10/15/18 Pre-Operative Diagnosis: left knee OA Operation: Left ELIDIA TKA Post-Operative Diagnosis: Same as Pre-op Surgeon: Juan Díaz Senior Operations Manager: Shwetha Fernandez Anesthesia: Spinal Estimated Blood Loss (mls): 100
[2018-10-15] MEDS ORDERED: MAGNESIUM HYDROX 2400MG/30ML ORAL SUSPENSION 30 ML CUP PO PRN (15:30)
[2018-10-15] MEDS ORDERED: LACTATED RINGERS SOLUTION 1,000 ML IV SCH (15:30)
[2018-10-15] MEDS ORDERED: MAG HYDROX/AL HYDROX/SIMETH 30 ML UNIT-DOSE CUP PO PRN (15:30)
[2018-10-15] MEDS: ACETAMINOPHEN 1000 MG/100 ML VIAL (NON FORMULARY) IVPB ONE ×2 (15:45→16:40)
[2018-10-15] MEDS: KETOROLAC TROMETHAMINE 30 MG/1 ML VIAL IVPUSH SCH ×3 (15:57→22:12)
[2018-10-15] MEDS: traMADol HCL 50 MG TABLET PO SCH ×3 (15:58→21:47)
[2018-10-15] MEDS: ACETAMINOPHEN 325 MG TABLET (FP) PO SCH ×2 (16:41→22:11)
[2018-10-15] MEDS: LACTATED RINGERS SOLUTION 1,000 ML IV SCH (17:03)
[2018-10-15] MEDS: CEFAZOLIN 2 GM/D5W 2 GM/50 ML ML IVPB SCH (17:32)
[2018-10-15] MEDS: FERROUS SO4 325 MG TABLET (FP) PO SCH (17:32)
--- NOTE | 2018-10-15 20:39 | SPEC ---
DATE OF OPERATION: 10/15/2018 PREOPERATIVE DIAGNOSIS: Left knee osteoarthritis. POSTOPERATIVE DIAGNOSIS: Left knee osteoarthritis. PROCEDURE: Left total knee replacement with MAKOplasty robotic navigation. ATTENDING: Bobby Crum MD FACULTY MEMBER: IRENA Agudelo ANESTHESIA: Spinal plus sedation. ESTIMATED BLOOD LOSS: 100 mL. COMPLICATIONS: None. DISPOSITION: The patient was transferred to the PACU in stable condition. IMPLANTS USED: Sarah Triathlon size 3 femoral component, size 3 tibial component, 11-mm posterior-stabilized polyethylene component, 29-mm patellar component. INDICATIONS: This is a 68-year-old female who presented to the office complaining of severe left knee pain. She was seen and examined by Dr. Crum and diagnosed with severe left knee osteoarthritis. The patient was initially treated nonoperatively with injections, medications, and physical therapy, but continued to have severe pain and ambulatory dysfunction. She was, therefore, indicated for a left total knee replacement. The risks, benefits, and alternatives of the procedure were explained to the patient in great detail, and she elected to proceed with the surgery. On the day of surgery, the patient was taken to the operating room and placed on the OR table. Spinal anesthesia was administered by the anesthesiologist. The patient was then positioned supine on the table and all bony prominences were padded. The knee was then prepped and draped in the usual sterile fashion and intravenous antibiotics were given for infection prophylaxis. A surgical time-out was then performed with the team, and the patients identity, procedure, side, availability of implants, and the administration of antibiotics was confirmed. With the knee flexed, a midline incision was made and carried down through the subcutaneous fat to the underlying retinaculum. A medial parapatellar arthrotomy was performed. This was followed by a subperiosteal dissection of the tissue off the proximal, medial tibia. A portion of fat pad was removed from under the patellar tendon, and a small portion of fat was excised off the distal supracondylar femur. Electrocautery and an Aquamantys bipolar sealing device were used to achieve hemostasis. The knee was then flexed further and the anterior horn of the lateral meniscus was released from the midline. Next, the anterior and posterior cruciate ligaments were transected. Grade 4 changes were noted diffusely throughout the knee. Femoral and tibial checkpoints were then placed in the appropriate location using a mallet. Two parallel bicortical self-drilling pins were placed in the tibial diaphysis after making stab incisions and bluntly dissecting down to bone. Two pins were then placed in the distal supracondylar femur. The GradFly navigation arrays were then attached to both the femoral and tibial pins and the lower extremity was then registered to the robotic navigation device using various joint movements, as well as inputting several dozen reference points. The knee was then taken through a full range of motion with a corrective force applied. Alignment in varus/valgus as well as flexion/extension and soft tissue balance was measured in various positions. The navigation device showed a numerical and graphic representation of the soft tissue balance. The components were repositioned virtually using the software until optimal soft tissue balance was achieved on screen. Once this was accomplished, the final plan was saved and sent to the robot. Self-retaining retractors were then placed at the joint line for exposure and protection of the collateral ligaments. The robot was brought into the sterile field and registered with the navigation device. The robotic arm with attached oscillating saw blade was then used to perform femoral and tibial bone cuts as per the saved software plan. The femoral box cut was made using the appropriately sized manual cutting guide. The knee was then irrigated. Trial components were placed and the knee was taken through a full range of motion to assess soft tissue balance and alignment. The range of motion was found to be excellent and the soft tissue balance was optimal and according to plan. The knee was then put into extension and the patella everted. The synovium around the patella was circumscribed with electrocautery. A caliper was used to measure the patellar thickness and a saw was then used to resect the patella at the chondro-osseous junction. The cut surface was then sized and drilled for the appropriate patellar button, with care taken to medialize it. A trial patella was then placed and the knee was again taken through a full range of motion. The knee was found to have both good balance and good patellar tracking. All of the components were removed except the tibial base plate. The appropriate instrumentation was used to drill and punch the proximal tibia for the keel of the final component. All bony surfaces were then cleaned with pulsatile lavage and dried. Bone cement was then prepared on the back table, and final components were cemented in place in the usual fashion. Extruded cement was removed. The polyethylene trial was placed, the knee was put into extension, and axial pressure was applied for compression while the cement hardened. The patellar button was similarly cemented into place. Once the cement had hardened, the knee was taken through a full range of motion to assess stability, balance, and patellar tracking. This was found to be optimal and the trial polyethylene was exchanged for the appropriately sized real implant. The wound was then thoroughly irrigated with normal saline. A 3-minute dilute Betadine lavage was performed. The knee was again irrigated using a pulsatile lavage device. A periarticular injection was used to locally infiltrate the capsular tissues surrounding the implant and prosthesis. Then No. 1 Polysorb and 0 VLoc 180 barbed sutures were used to close the arthrotomy. Then No. 1 Polysorb and 2-0 VLoc 90 sutures were used in the subcutaneous tissues. Then 4-0 undyed Vicryl and Dermabond skin adhesive was used to close the stab incisions made for the navigation pins. The skin was closed using both 3-0 VLoc 90 suture in a running subcuticular fashion and Dermabond skin adhesive. Once this was completed a sterile Aquacel dressing and compressive Trent-wrap was applied. The patient was then awakened and taken to the PACU in stable condition. BOBBY CRUM M.D. [id number]
[2018-10-15] MEDS ORDERED: DULoxetine HCL 30 MG CAPSULE.DR PO ONE (21:30)
[2018-10-15] MEDS ORDERED: PT OWN MED DRAWER 7, Y5N ONE (21:31)
[2018-10-15] MEDS: ASCORBIC ACID 500 MG TABLET (FP) PO SCH (21:46)
[2018-10-15] MEDS: GABAPENTIN 400 MG CAPSULE (FP) PO SCH (21:47)
[2018-10-15] MEDS: SENNOSIDES/DOCUSATE COMBO (SENNA PLUS) TABLET (UD) PO SCH (21:47)
[2018-10-15] MEDS: RANOLAZINE E.R. 500 MG TABLET (FP) PO SCH (21:47)
[2018-10-15] MEDS: traZODone HCL 50 MG TABLET (FP) PO SCH (21:47)
[2018-10-15] MEDS: oxyCODONE HCL 10 MG SUSTAINED ACTING TABLET PO SCH (21:49)
[2018-10-15] MEDS: clonazePAM 0.5 MG TABLET PO SCH (21:49)
[2018-10-15] MEDS: ATORVASTATIN CA 10 MG TABLET (FP) PO SCH (21:49)
[2018-10-15] MEDS: CELECOXIB 200 MG CAPSULE PO SCH (21:49)
[2018-10-15] MEDS ORDERED: ZIPRASIDONE 20 MG CAPSULE PO SCH (22:00)
[2018-10-15] MEDS ORDERED: DULoxetine HCL 60 MG CAPSULE.DR PO SCH (22:00)
[2018-10-15] MEDS: ALBUTEROL SO4 0.083% IH SOL 2.5 MG/3 ML VIAL.NEB. NEB SCH (22:13)
[2018-10-16] MEDS ORDERED: DEXAMETHASONE SOD PHOSPHATE 10 MG/1 ML VIAL IVPB ONE
[2018-10-16] MEDS: CEFAZOLIN 2 GM/D5W 2 GM/50 ML ML IVPB SCH ×2 (01:21→09:42)
[2018-10-16] MEDS: KETOROLAC TROMETHAMINE 30 MG/1 ML VIAL IVPUSH SCH ×2 (02:45→09:39)
[2018-10-16] MEDS: ACETAMINOPHEN 325 MG TABLET (FP) PO SCH ×4 (02:46→21:32)
[2018-10-16] MEDS: traMADol HCL 50 MG TABLET PO SCH ×4 (02:47→21:33)
[2018-10-16 07:46] LABS: HEMATOCRIT 34.5 % (32.4-45.2); HEMOGLOBIN 11.2 GM/dl (10.7-15.3); MCH 29.5 pg (25.7-33.7); MCHC 32.6 g/dl (32.0-36.0); MEAN CELL VOLUME 90.5 fl (80-96); MEAN PLT VOLUME 8.5 fl (7.5-11.1); PLATELET COUNT 342 K/MM3 (134-434); RBC 3.81 M/mm3 (3.60-5.2); RDW 12.7 % (11.6-15.6); WHITE BLOOD COUNT 14.5 K/mm3 (4.0-10.8)
[2018-10-16] MEDS: oxyCODONE HCL 5 MG TABLET PO PRN (07:58)
[2018-10-16] MEDS ORDERED: ASPIRIN 325 MG TABLET PO SCH (08:00)
[2018-10-16 08:14] LABS: CALCIUM 8.9 mg/dl (8.5-10); CREATININE 0.9 mg/dl (0.55-1.3); POTASSIUM 4.6 mmol/L (3.5-5.1)
[2018-10-16] MEDS ORDERED: PT OWN MED DRAWER 7, Y5N ONE ×3 (09:02→21:28)
[2018-10-16] MEDS: ASCORBIC ACID 500 MG TABLET (FP) PO SCH ×2 (09:36→21:35)
[2018-10-16] MEDS: GABAPENTIN 300 MG CAPSULE (FP) PO SCH (09:36)
[2018-10-16] MEDS: SENNOSIDES/DOCUSATE COMBO (SENNA PLUS) TABLET (UD) PO SCH ×2 (09:36→21:35)
[2018-10-16] MEDS: CELECOXIB 200 MG CAPSULE PO SCH ×2 (09:36→21:33)
[2018-10-16] MEDS: FOLIC ACID 1 MG TABLET (FP) PO SCH (09:36)
[2018-10-16] MEDS: PANTOPRAZOLE 40 MG TABLET (FP) PO SCH (09:37)
[2018-10-16] MEDS: FERROUS SO4 325 MG TABLET (FP) PO SCH (09:37)
[2018-10-16] MEDS: clonazePAM 0.5 MG TABLET PO SCH ×3 (09:37→21:34)
[2018-10-16] MEDS: oxyCODONE HCL 10 MG SUSTAINED ACTING TABLET PO SCH ×2 (09:38→21:35)
[2018-10-16] MEDS: MULTIVITAMINS (DAILY MVI) TABLET (FP) PO SCH (09:38)
[2018-10-16] MEDS: ALBUTEROL SO4 8 GM HFA INHALER IH SCH ×3 (09:43→22:00)
[2018-10-16] MEDS: THIAMINE HCL 100 MG TABLET (FP) PO SCH (09:49)
[2018-10-16] MEDS: TIOTROPIUM BROMIDE 2.5 MCG (SPIRIVA) RESPIMAT INHALER IH SCH (09:49)
[2018-10-16] MEDS: MOMETASONE FUROATE 220 MCG/IH INHALER IH SCH (09:49)
[2018-10-16] MEDS: RANOLAZINE E.R. 500 MG TABLET (FP) PO SCH ×2 (09:49→21:35)
[2018-10-16] MEDS: METOPROLOL TARTRATE 25 MG TABLET (FP) PO SCH (09:52)
[2018-10-16] MEDS: LACTATED RINGERS SOLUTION 1,000 ML IV SCH (15:20)
--- NOTE | 2018-10-16 17:43 | PN ---
Progress Note (short form) - Note Progress Note: ANESTHESIA POSTOP 68 YO FEMALE POD#1 S/P TKA, SPINAL AND PNB Patient sitting in chair. Eating. No complaints. Pain adequately controlled. VSS, Afebrile Encouraged IS, participation in PT. Continue current care. No anesthetic complications.
[2018-10-16] MEDS: DULoxetine HCL 30 MG CAPSULE.DR PO SCH (21:33)
[2018-10-16] MEDS: traZODone HCL 50 MG TABLET (FP) PO SCH (21:34)
[2018-10-16] MEDS: ATORVASTATIN CA 10 MG TABLET (FP) PO SCH (21:34)
[2018-10-16] MEDS: ZIPRASIDONE 40 MG CAPSULE (FP) PO SCH (21:34)
[2018-10-16] MEDS: ALBUTEROL SO4 0.083% IH SOL 2.5 MG/3 ML VIAL.NEB. NEB SCH (21:35)
[2018-10-16] MEDS: GABAPENTIN 400 MG CAPSULE (FP) PO SCH (21:35)
--- NOTE | 2018-10-16 22:41 | PN ---
Progress Note (short form) - Note Progress Note: Pt seen and examined. Doing well. AVSS Selected Entries 10/16/18 15:31 Temperature 98.0 F Pulse Rate 80 Respiratory 22 H Rate Blood Pressure 117/65 O2 Sat by Pulse 94 L Oximetry (%) Oxygen Delivery Room Air Method Laboratory Tests 10/16/18 10/16/18 07:00 07:00 WBC 14.5 H Hgb 11.2 Hct 34.5 Plt Count 342 Sodium 133 L Potassium 4.6 Chloride 100 Carbon Dioxide 25 Anion Gap 8 BUN 15.0 Creatinine 0.9 Est GFR (CKD-EPI)AfAm 76.14 Est GFR (CKD-EPI)NonAf 65.70 Random Glucose 211 H Calcium 8.9 Gen: NAD LLE: c/d/i, NVID A/P POD#1 s/p L TKA PT/OOB Plan for d/c to [facility]
[2018-10-17] MEDS: ACETAMINOPHEN 325 MG TABLET (FP) PO SCH ×4 (03:52→21:52)
[2018-10-17] MEDS: traMADol HCL 50 MG TABLET PO SCH ×4 (03:52→21:53)
[2018-10-17] MEDS: oxyCODONE HCL 5 MG TABLET PO PRN ×2 (06:26→18:38)
[2018-10-17 07:46] LABS: HEMOGLOBIN 11.8 GM/dl (10.7-15.3); MCH 30.6 pg (25.7-33.7); MCHC 33.7 g/dl (32.0-36.0); MEAN CELL VOLUME 90.9 fl (80-96); MEAN PLT VOLUME 8.2 fl (7.5-11.1); PLATELET COUNT 374 K/MM3 (134-434); RBC 3.84 M/mm3 (3.60-5.2); RDW 13.2 % (11.6-15.6); WHITE BLOOD COUNT 12.8 K/mm3 (4.0-10.8)
[2018-10-17] MEDS: MULTIVITAMINS (DAILY MVI) TABLET (FP) PO SCH (09:15)
[2018-10-17] MEDS: GABAPENTIN 300 MG CAPSULE (FP) PO SCH (09:15)
[2018-10-17] MEDS: clonazePAM 0.5 MG TABLET PO SCH ×2 (09:16→21:54)
[2018-10-17] MEDS: RANOLAZINE E.R. 500 MG TABLET (FP) PO SCH ×2 (09:17→21:55)
[2018-10-17] MEDS: SENNOSIDES/DOCUSATE COMBO (SENNA PLUS) TABLET (UD) PO SCH ×2 (09:17→21:55)
[2018-10-17] MEDS: APIXABAN 2.5 MG TABLET PO SCH ×2 (09:18→21:54)
[2018-10-17] MEDS: FOLIC ACID 1 MG TABLET (FP) PO SCH (09:18)
[2018-10-17] MEDS: PANTOPRAZOLE 40 MG TABLET (FP) PO SCH (09:18)
[2018-10-17] MEDS: ASCORBIC ACID 500 MG TABLET (FP) PO SCH ×2 (09:18→21:54)
[2018-10-17] MEDS: METOPROLOL TARTRATE 25 MG TABLET (FP) PO SCH (09:18)
[2018-10-17] MEDS: FERROUS SO4 325 MG TABLET (FP) PO SCH (09:19)
[2018-10-17] MEDS: oxyCODONE HCL 10 MG SUSTAINED ACTING TABLET PO SCH ×2 (09:20→22:54)
[2018-10-17] MEDS: TIOTROPIUM BROMIDE 2.5 MCG (SPIRIVA) RESPIMAT INHALER IH SCH (09:21)
[2018-10-17] MEDS: ALBUTEROL SO4 8 GM HFA INHALER IH SCH ×2 (09:21→21:59)
[2018-10-17] MEDS: MOMETASONE FUROATE 220 MCG/IH INHALER IH SCH (09:21)
[2018-10-17] MEDS: THIAMINE HCL 100 MG TABLET (FP) PO SCH (09:22)
[2018-10-17] MEDS: LACTATED RINGERS SOLUTION 1,000 ML IV SCH (14:32)
--- NOTE | 2018-10-17 20:28 | PN ---
Progress Note (short form) - Note Progress Note: Pt seen and examined. Doing well. AVSS Selected Entries 10/18/18 10/18/18 10/18/18 06:38 08:24 09:00 Temperature 97.5 F L 97.9 F Pulse Rate 90 92 H Respiratory 17 17 Rate Blood Pressure 111/65 125/53 L O2 Sat by Pulse 95 Oximetry (%) Laboratory Tests 10/17/18 07:20 WBC 12.8 H Hgb 11.8 Hct 35.0 Plt Count 374 Gen: NAD LLE: c/d/i, NVID A/P s/p L TKA PT/OOB Plan for d/c to SNF
--- NOTE | 2018-10-17 20:34 | DS ---
Physical Examination Vital Signs: Vital Signs Temperature 98.1 F 10/17/18 18:00 Pulse Rate 80 10/17/18 18:00 Respiratory Rate 16 10/17/18 18:00 Blood Pressure 104/63 10/17/18 18:00 O2 Sat by Pulse Oximetry (%) 96 10/17/18 18:00 Labs: CBC, BMP 10/17/18 07:20 10/16/18 07:00 Discharge Summary Reason For Visit: LEFT KNEE OSTEOARTHRITIS Current Active Problems Osteoarthritis of left knee (Acute) Procedures: Principal: Left ELIDIA TKA Hospital Course: Admitted for elective surgery. Procedure performed without complications. Pt received postoperative antibiotic prophylaxis and DVT ppx. Ambulated with physical therapy. Stable for discharge home with outpatient followup. Condition: Stable - Instructions Diet, Activity, Other Instructions: Dr. Díaz - Knee Replacement Instructions Keep the Aquacel dressing on until removed by Dr. Díaz in 10-14 days - it is antibacterial and waterproof and you can shower with it on. Call the office for a follow-up appointment with Dr. Díaz in 10-14 days. [phone] Take ELIQUIS 2.5mg twice daily for 35 days to prevent blood clots in your legs. Take one Pantoprazole 40mg daily for 6 weeks to protect against heartburn and ulcers. Take Cephalexin (antibiotic) 3x/day for 10 days to help prevent skin infection. Take a multivitamin, stool softener, and extra Vitamin C supplement daily. For pain: *Mild pain (1-3/10): Take 1 Tramadol tablet every 4 hours as needed. Moderate pain (4-6/10): Take 1 Tramadol tablet and 1 Percocet tablet every 4 hours as needed. Severe pain (7-10/10): Take 1 Tramadol tablet and 2 Percocet tablets every 4 hours as needed. Activity: You can put as much weight on the operative leg as you want. Right after you get home, there will be a physical therapist coming to your house to help you walk around and bend/straighten your knee. After your follow-up appointment, you will be sent for more intensive outpatient physical therapy which will include machines and equipment that the home therapist cannot bring to your house. Always use a walker or cane for balance and to prevent falls. Expect to see swelling/bruising from the operative site all the way down to your toes. Wear the compression stocking on the operative side during the day to minimize how much swelling there is in your foot/ankle. Don't wear the stocking at night. You don't have to wear a stocking on the other side. Disposition: ASSISTED FACILITY - Home Medications Comprehensive Discharge Medication List: Ambulatory Orders Atorvastatin Ca [Lipitor] 10 mg PO HS 05/10/13 Mometasone Furoate [Asmanex 220Mcg -] 2 inh IH DAILY 05/10/13 Gabapentin [Neurontin] 300 mg PO DAILY 03/02/14 Gabapentin [Neurontin -] 400 mg PO HS 09/04/14 traZODone HCL [Desyrel -] 50 mg PO HS tablet 09/06/14 Albuterol 0.083% Nebulizer Soledad [Ventolin 0.083% Nebulizer Soln -] 1 neb NEB HS 11/05/14 Albuterol Sulfate [Proair Hfa -] 1 - 2 inh PO BID 11/05/14 Tiotropium [place] [Spiriva] 1 inh PO DAILY 11/05/14 Ziprasidone [Geodon -] 40 mg PO HS 11/05/14 Ranolazine [Ranexa] 500 mg PO BID 04/06/17 Calcium Carbonate [Calcium] 1,200 mg PO DAILY 04/07/17 Cholecalciferol (Vitamin D3) [Vitamin D3] 5,000 unit PO DAILY 04/07/17 Cyanocobalamin Vit B-12 Inj. [Vitamin B12 Injection -] 1,000 mcg IJ PRN Duloxetine HCl [Cymbalta -] 60 mg PO HS 04/07/17 Ferrous Sulfate [Iron] 325 mg PO DAILY 04/07/17 Folic Acid 1 mg PO DAILY 04/07/17 Thiamine HCl [Vitamin B-1] 50 mg PO DAILY 04/07/17 Clonazepam 0.5 mg PO BID 10/04/18 Metoprolol Tartrate 12.5 mg PO DAILY 10/04/18 Apixaban [Eliquis -] 2.5 mg PO BID #0 tablet 10/17/18 Ascorbic Acid [Vitamin C -] 500 mg PO BID tablet 10/17/18 Cephalexin Monohydrate [Keflex -] 500 mg PO TID #30 capsule 10/17/18 Multivitamins [Multivit ([facility] Formul[facility])] 1 tab PO DAILY tab 10/17/18 Oxycodone HCl/Acetaminophen [Percocet 5-325 mg Tablet] 1 - 2 tab PO Q4H PRN #60 tablet MDD 10 10/17/18 Pantoprazole Sodium [Protonix -] 40 mg PO DAILY tablet.ec 10/17/18 Pantoprazole Sodium [Protonix -] 40 mg PO DAILY #40 tablet.ec 10/17/18 Sennosides/Docusate Sodium [Pericolace -] 2 tablet PO BID tablet 10/17/18 traMADol HCL [Ultram -] 50 mg PO Q4H PRN #42 tablet MDD 6 10/17/18
[2018-10-17] MEDS: DULoxetine HCL 30 MG CAPSULE.DR PO SCH (21:53)
[2018-10-17] MEDS: traZODone HCL 50 MG TABLET (FP) PO SCH (21:54)
[2018-10-17] MEDS: GABAPENTIN 400 MG CAPSULE (FP) PO SCH (21:54)
[2018-10-17] MEDS: ATORVASTATIN CA 10 MG TABLET (FP) PO SCH (21:54)
[2018-10-17] MEDS ORDERED: PT OWN MED DRAWER 7, Y5N ONE (21:57)
[2018-10-17] MEDS: ALBUTEROL SO4 0.083% IH SOL 2.5 MG/3 ML VIAL.NEB. NEB SCH (21:58)
[2018-10-17] MEDS: ZIPRASIDONE 40 MG CAPSULE (FP) PO SCH (21:58)
[2018-10-18] MEDS: ACETAMINOPHEN 325 MG TABLET (FP) PO SCH ×2 (03:07→09:25)
[2018-10-18] MEDS: traMADol HCL 50 MG TABLET PO SCH ×2 (03:08→10:28)
[2018-10-18] MEDS: MULTIVITAMINS (DAILY MVI) TABLET (FP) PO SCH (10:23)
[2018-10-18] MEDS: ASCORBIC ACID 500 MG TABLET (FP) PO SCH (10:23)
[2018-10-18] MEDS: APIXABAN 2.5 MG TABLET PO SCH (10:23)
[2018-10-18] MEDS: GABAPENTIN 300 MG CAPSULE (FP) PO SCH (10:23)
[2018-10-18] MEDS: clonazePAM 0.5 MG TABLET PO SCH (10:23)
[2018-10-18] MEDS: METOPROLOL TARTRATE 25 MG TABLET (FP) PO SCH (10:24)
[2018-10-18] MEDS: PANTOPRAZOLE 40 MG TABLET (FP) PO SCH (10:24)
[2018-10-18] MEDS: THIAMINE HCL 100 MG TABLET (FP) PO SCH (10:25)
[2018-10-18] MEDS: RANOLAZINE E.R. 500 MG TABLET (FP) PO SCH (10:25)
[2018-10-18] MEDS: FOLIC ACID 1 MG TABLET (FP) PO SCH (10:25)
[2018-10-18] MEDS: TIOTROPIUM BROMIDE 2.5 MCG (SPIRIVA) RESPIMAT INHALER IH SCH (10:26)
[2018-10-18] MEDS: SENNOSIDES/DOCUSATE COMBO (SENNA PLUS) TABLET (UD) PO SCH (10:26)
[2018-10-18] MEDS: ALBUTEROL SO4 8 GM HFA INHALER IH SCH (10:26)
[2018-10-18] MEDS: MOMETASONE FUROATE 220 MCG/IH INHALER IH SCH (10:27)
[2018-10-18] MEDS: FERROUS SO4 325 MG TABLET (FP) PO SCH (10:27)
[2018-10-18] MEDS: oxyCODONE HCL 10 MG SUSTAINED ACTING TABLET PO SCH (10:32)
[2018-10-18 12:24] VITALS: BP 125/53; PULSE 92; TEMP 97.9
--- NOTE | 2018-12-05 15:46 | PATH ---
Surgical Pathology Report Patient Name: ASHLEY MAYBERRY Med. Rec. #: [id number] /Age/Gender: 1950 (Age: 68) / F Account: [id number] Location: [facility] MED-SURG Taken: 10/15/2018 Received: 10/15/2018 Reported: 12/05/2018 Physicians: Juan Díaz M.D. Specimen(s) Received BONES LEFT KNEE Clinical History Left knee osteoarthritis Final Diagnosis KNEE BONES, LEFT, TOTAL KNEE REPLACEMENT: DEGENERATIVE JOINT DISEASE. Electronically Signed Guadalupe Najera M.D. Gross Description Received in formalin labeled "left total knee bone," is a 10.5 x 9.0 x 1.5 cm aggregate of multiple portions of bone and soft tissue. The tibial plateau measures 7.2 x 4.3 x 1.2 cm. There are multiple areas of eburnation present, measuring up to 3.1 cm in greatest dimension. The remaining articular surfaces are schaefer and diffusely granular. The underlying trabecular bone is yellow and hard. Cuff Turner sections are submitted in one cassette, following decalcification. /10/17/2018 [facility]10/17/2018
== END 2018-10-18 11:28 | DRG 470 ==
LOC: FM/S 08:09
PROVIDERS: ADMIT Student in an Organized Health Care Education/Training Program; ATTEND Student in an Organized Health Care Education/Training Program
PROC: 8E0YXCZ Robotic Assisted Procedure of Lower Extremity (ICD-10-PCS; 2018-10-15)
PROC: 0SRD0J9 Replacement of Left Knee Joint with Synthetic Substitute, Cemented, Open Approach (ICD-10-PCS; principal; 2018-10-15 12:21)
DX: M17.12 Unilateral primary osteoarthritis, left knee (principal); J44.9 Chronic obstructive pulmonary disease, unspecified; Z99.81 Dependence on supplemental oxygen; I25.10 Atherosclerotic heart disease of native coronary artery without angina pectoris; I25.2 Old myocardial infarction; Z87.891 Personal history of nicotine dependence
CPT/HCPCS: 36415; 73560-TC-LT-FY; 80048; 85027; 88304-TC; 88311-TC; 94640; 94760; 97116-GP; 97163-GP; J0131; J1100

== ENCOUNTER 2018-10-29 09:05 | Inpatient (IN) | payer OTHER, MEDICARE | END 2018-11-03 15:00 | LOC: FM/S 09:05 ==

== ENCOUNTER 2020-03-08 11:25 | Inpatient (IN) | payer OTHER, MEDICARE ==
[2020-03-08] MEDS ORDERED: SODIUM CHLORIDE 0.9% 500 ML INFUS.BAG IV ONE (12:59)
[2020-03-08] MEDS ORDERED: ACETAMINOPHEN 1000 MG/100 ML VIAL (NON FORMULARY) IVPB ONE (12:59)
[2020-03-08] MEDS ORDERED: DEXAMETHASONE SOD PHOSPHATE 10 MG/1 ML VIAL IVPUSH ONE (13:00)
[2020-03-08] MEDS ORDERED: METOCLOPRAMIDE HCL INJECTION 10 MG/2 ML VIAL IVPB ONE (13:00)
[2020-03-08] MEDS ORDERED: ALBUTEROL SO4 HFA INHALER IH ONE ×2 (13:03→13:38)
[2020-03-08] MEDS ORDERED: DEXAMETHASONE SOD PHOSPHATE 10 MG/1 ML VIAL ONE (13:37)
[2020-03-08] MEDS ORDERED: ACETAMINOPHEN INJECTION 100 ML IVPB ONE (13:37)
[2020-03-08 13:39] LABS: BASO % 0.6 % (0-2.0); HEMATOCRIT 40.3 % (32.4-45.2); HEMOGLOBIN 13.5 GM/dL (10.7-15.3); MCHC 33.5 g/dl (32.0-36.0); MEAN CELL VOLUME 89.7 fl (80-96); MEAN PLT VOLUME 8.7 fl (7.5-11.1); MONO % 7.6 % (3.8-10.2); NEUT % 65.8 % (42.8-82.8); PLATELET COUNT 327 K/MM3 (134-434); RDW 13.6 % (11.6-15.6); WHITE BLOOD COUNT 6.6 K/mm3 (4.0-10.0)
[2020-03-08 13:47] LABS: CHLORIDE 106 mmol/L (98-107); POTASSIUM 4.6 mmol/L (3.5-5.1); SODIUM 137 mmol/L (136-145)
[2020-03-08 13:49] LABS: ALBUMIN 3.7 g/dl (3.4-5.0); ANION GAP 3 MMOL/L (8-16); BLOOD UREA NITROGEN 12.3 mg/dL (7-18); CALCIUM 9.3 mg/dL (8.5-10.1); CO2 29 mmol/L (21-32); GLUCOSE,RANDOM 93 mg/dL (74-106)
[2020-03-08 13:52] LABS: CREATININE 0.9 mg/dL (0.55-1.3); SGOT/AST 23 U/L (15-37); SGPT/ALT 27 U/L (13-61)
[2020-03-08 13:54] LABS: BILIRUBIN,TOTAL 0.4 mg/dL (0.2-1); TOT PROT 6.4 g/dl (6.4-8.2)
[2020-03-08 13:55] LABS: ALK PHOS 85 U/L (45-117)
[2020-03-08 13:56] LABS: LDH 171 U/L (84-246)
[2020-03-08 13:58] LABS: INR 1.01 (0.83-1.09); PROTHROMBIN TIME (PATIENT) 12.4 SEC (9.7-13.0)
[2020-03-08] MEDS ORDERED: ALBUTEROL SO4 HFA INHALER IH PRN (15:07)
[2020-03-08] MEDS ORDERED: ALBUTEROL SO4 0.083% IH SOL 2.5 MG/3 ML VIAL.NEB. NEB PRN (15:07)
[2020-03-08] MEDS ORDERED: ACETAMINOPHEN 325 MG TABLET (FP) PO PRN (15:13)
[2020-03-08 16:54] LABS: VENOUS O2 SATURATION 61.2 % (70-80); VENOUS PCO2 52.9 mmHg (38-52); VENOUS PH 7.311 (7.310-7.410)
[2020-03-08] MEDS ORDERED: ACETAMINOPHEN 325 MG TABLET (FP) ONE (19:02)
[2020-03-08 21:36] LABS: CHOLESTEROL 139 mg/dL (50-200); TRIGLYCERIDES 109 mg/dL (0-150)
[2020-03-08 21:37] LABS: LDL CHOLESTEROL (ONLY SJRH) 62 mg/dL (5-100)
[2020-03-08 21:39] LABS: HDL CHOLESTEROL 58 mg/dL (40-60)
[2020-03-08 21:40] LABS: N-TERMINAL BNP 36.1 pg/ml (5-125)
[2020-03-08] MEDS ORDERED: ZIPRASIDONE 20 MG CAPSULE PO SCH (22:00)
[2020-03-08] MEDS ORDERED: ASCORBIC ACID 500 MG TABLET (FP) ONE (22:46)
[2020-03-08] MEDS ORDERED: DULoxetine HCL 30 MG CAPSULE.DR PO ONE (22:47)
[2020-03-08] MEDS ORDERED: GABAPENTIN 100 MG CAPSULE ONE (22:47)
[2020-03-08] MEDS ORDERED: APIXABAN 2.5 MG TABLET ONE (22:47)
[2020-03-08] MEDS ORDERED: ATORVASTATIN CA 10 MG TABLET (FP) ONE (22:47)
[2020-03-08] MEDS ORDERED: methylPREDNISolone NA SUCC 40 MG/1 ML VIAL ONE (22:48)
[2020-03-08] MEDS ORDERED: clonazePAM 0.5 MG TABLET ONE (23:04)
[2020-03-08] MEDS: clonazePAM 0.5 MG TABLET PO PRN (23:05)
[2020-03-08] MEDS: methylPREDNISolone NA SUCC 40 MG/1 ML VIAL IVPUSH SCH (23:06)
[2020-03-08] MEDS: GABAPENTIN 400 MG CAPSULE PO SCH (23:06)
[2020-03-08] MEDS: ATORVASTATIN CA 10 MG TABLET (FP) PO SCH (23:06)
[2020-03-08] MEDS: DULoxetine HCL 30 MG CAPSULE.DR PO SCH (23:06)
[2020-03-08] MEDS: ASCORBIC ACID 500 MG TABLET (FP) PO SCH (23:06)
[2020-03-08] MEDS: APIXABAN 2.5 MG TABLET PO SCH (23:29)
[2020-03-08] MEDS: SENNOSIDES/DOCUSATE COMBO (SENNA PLUS) TABLET (UD) PO SCH (23:49)
[2020-03-08] MEDS: RANOLAZINE E.R. 500 MG TABLET (FP) PO SCH (23:49)
[2020-03-09 04:02] VITALS: BMI 31.0
[2020-03-09] MEDS: FOLIC ACID 1 MG TABLET (FP) PO SCH (09:15)
[2020-03-09] MEDS: CALCIUM (OYSTER SHELL) 500 MG TABLET (FP) PO SCH (09:15)
[2020-03-09] MEDS: ASCORBIC ACID 500 MG TABLET (FP) PO SCH ×2 (09:15→21:15)
[2020-03-09] MEDS: clonazePAM 0.5 MG TABLET PO PRN ×2 (09:15→21:16)
[2020-03-09] MEDS: RANOLAZINE E.R. 500 MG TABLET (FP) PO SCH ×2 (09:15→21:14)
[2020-03-09] MEDS: FERROUS SO4 325 MG TABLET (FP) PO SCH (09:15)
[2020-03-09] MEDS: APIXABAN 2.5 MG TABLET PO SCH (09:15)
[2020-03-09] MEDS: PANTOPRAZOLE 40 MG TABLET PO SCH (09:15)
[2020-03-09] MEDS: GABAPENTIN 300 MG CAPSULE PO SCH (09:16)
[2020-03-09] MEDS: MULTIVITAMINS (DAILY MVI) TABLET (FP) PO SCH (09:16)
[2020-03-09] MEDS: THIAMINE HCL 100 MG TABLET (FP) PO SCH (09:16)
[2020-03-09] MEDS: methylPREDNISolone NA SUCC 40 MG/1 ML VIAL IVPUSH SCH ×2 (09:16→21:15)
[2020-03-09] MEDS: SENNOSIDES/DOCUSATE COMBO (SENNA PLUS) TABLET (UD) PO SCH ×3 (09:32→21:28)
[2020-03-09] MEDS ORDERED: AZITHROMYCIN IVPB 500 MG in DEXTROSE 5%-WATER - 250 ML IVPB SCH (10:00)
[2020-03-09] MEDS ORDERED: PATIENT'S OWN MEDICATION (NON-FORMULARY) (Tiotropium Bromide [Spiriva] 18 MCG/INH Inh) PO SCH (10:00)
[2020-03-09] MEDS ORDERED: PT OWN MED DRAWER 7, Y5N ONE (11:07)
[2020-03-09] MEDS: TIOTROPIUM BROMIDE 2.5 MCG (SPIRIVA) RESPIMAT INHALER IH SCH (11:29)
[2020-03-09] MEDS: MOMETASONE FUROATE 220 MCG/IH INHALER IH SCH (11:29)
[2020-03-09] MEDS ORDERED: ALBUTEROL SO4 HFA INHALER IH PRN (11:39)
[2020-03-09] MEDS: AZITHROMYCIN IVPB 500 MG/250 ML BAG IVPB SCH (13:04)
[2020-03-09] MEDS: ENOXAPARIN NA (PORCINE) 40 MG/0.4 ML DISP.SYRIN SQ SCH (13:04)
[2020-03-09] MEDS: METOPROLOL TARTRATE 25 MG TABLET (FP) PO SCH (13:04)
[2020-03-09] MEDS ORDERED: ZIPRASIDONE 20 MG CAPSULE PO SCH (16:05)
[2020-03-09] MEDS: ATORVASTATIN CA 10 MG TABLET (FP) PO SCH (21:14)
[2020-03-09] MEDS: GABAPENTIN 400 MG CAPSULE PO SCH (21:14)
[2020-03-09] MEDS: ASPIRIN 81 MG CHEWABLE TABLETS PO SCH (21:14)
[2020-03-09] MEDS: DULoxetine HCL 30 MG CAPSULE.DR PO SCH (21:15)
[2020-03-09] MEDS: ZIPRASIDONE 20 MG CAPSULE PO SCH (21:16)
[2020-03-09] MEDS ORDERED: DULOXETINE HCL 60 MG PO SCH (22:00)
[2020-03-10 08:09] LABS: BASO % 0.3 % (0-2.0); HEMATOCRIT 38.1 % (32.4-45.2); HEMOGLOBIN 12.5 GM/dL (10.7-15.3); LYMPH % 8.2 % (8-40); MCH 29.3 pg (25.7-33.7); MCHC 32.8 g/dl (32.0-36.0); MEAN CELL VOLUME 89.1 fl (80-96); MEAN PLT VOLUME 8.7 fl (7.5-11.1); MONO % 4.4 % (3.8-10.2); NEUT % 87.1 % (42.8-82.8); PLATELET COUNT 309 K/MM3 (134-434); RBC 4.27 M/mm3 (3.60-5.2); RDW 13.4 % (11.6-15.6)
[2020-03-10 08:26] LABS: POTASSIUM 4.3 mmol/L (3.5-5.1)
[2020-03-10 08:34] LABS: CALCIUM 9.4 mg/dL (8.5-10.1)
[2020-03-10 08:35] LABS: ALBUMIN 3.4 g/dl (3.4-5.0); BLOOD UREA NITROGEN 19.8 mg/dL (7-18)
[2020-03-10 08:38] LABS: CREATININE 0.7 mg/dL (0.55-1.3)
[2020-03-10 08:39] LABS: BILIRUBIN,TOTAL 0.8 mg/dL (0.2-1); TOT PROT 5.7 g/dl (6.4-8.2)
[2020-03-10] MEDS: ENOXAPARIN NA (PORCINE) 40 MG/0.4 ML DISP.SYRIN SQ SCH (09:15)
[2020-03-10] MEDS: methylPREDNISolone NA SUCC 40 MG/1 ML VIAL IVPUSH SCH (09:15)
[2020-03-10] MEDS: RANOLAZINE E.R. 500 MG TABLET (FP) PO SCH ×2 (09:16→21:05)
[2020-03-10] MEDS: GABAPENTIN 300 MG CAPSULE PO SCH (09:16)
[2020-03-10] MEDS: ASCORBIC ACID 500 MG TABLET (FP) PO SCH ×2 (09:16→21:06)
[2020-03-10] MEDS: FOLIC ACID 1 MG TABLET (FP) PO SCH (09:16)
[2020-03-10] MEDS: FERROUS SO4 325 MG TABLET (FP) PO SCH (09:16)
[2020-03-10] MEDS: AZITHROMYCIN IVPB 500 MG/250 ML BAG IVPB SCH (09:16)
[2020-03-10] MEDS: PANTOPRAZOLE 40 MG TABLET PO SCH (09:17)
[2020-03-10] MEDS: THIAMINE HCL 100 MG TABLET (FP) PO SCH (09:17)
[2020-03-10] MEDS: MULTIVITAMINS (DAILY MVI) TABLET (FP) PO SCH (09:17)
[2020-03-10] MEDS: CALCIUM (OYSTER SHELL) 500 MG TABLET (FP) PO SCH (09:17)
[2020-03-10] MEDS: SENNOSIDES/DOCUSATE COMBO (SENNA PLUS) TABLET (UD) PO SCH ×2 (09:17→21:11)
[2020-03-10] MEDS: TIOTROPIUM BROMIDE 2.5 MCG (SPIRIVA) RESPIMAT INHALER IH SCH (09:17)
[2020-03-10] MEDS: MOMETASONE FUROATE 220 MCG/IH INHALER IH SCH (09:17)
[2020-03-10] MEDS: METOPROLOL TARTRATE 25 MG TABLET (FP) PO SCH (09:17)
[2020-03-10] MEDS: clonazePAM 0.5 MG TABLET PO PRN (21:05)
[2020-03-10] MEDS: DULoxetine HCL 30 MG CAPSULE.DR PO SCH (21:06)
[2020-03-10] MEDS: ASPIRIN 81 MG CHEWABLE TABLETS PO SCH (21:06)
[2020-03-10] MEDS: ATORVASTATIN CA 10 MG TABLET (FP) PO SCH (21:06)
[2020-03-10] MEDS: GABAPENTIN 400 MG CAPSULE PO SCH (21:06)
[2020-03-10] MEDS: ZIPRASIDONE 20 MG CAPSULE PO SCH (21:06)
[2020-03-11 09:21] VITALS: BP 102/63; PULSE 84; TEMP 98
[2020-03-11] MEDS: TIOTROPIUM BROMIDE 2.5 MCG (SPIRIVA) RESPIMAT INHALER IH SCH (10:24)
[2020-03-11] MEDS: MOMETASONE FUROATE 220 MCG/IH INHALER IH SCH (10:24)
[2020-03-11] MEDS: ENOXAPARIN NA (PORCINE) 40 MG/0.4 ML DISP.SYRIN SQ SCH (10:24)
[2020-03-11] MEDS: methylPREDNISolone NA SUCC 40 MG/1 ML VIAL IVPUSH SCH ×2 (10:24→10:39)
[2020-03-11] MEDS: RANOLAZINE E.R. 500 MG TABLET (FP) PO SCH (10:30)
[2020-03-11] MEDS: METOPROLOL TARTRATE 25 MG TABLET (FP) PO SCH (10:30)
[2020-03-11] MEDS: SENNOSIDES/DOCUSATE COMBO (SENNA PLUS) TABLET (UD) PO SCH (10:30)
[2020-03-11] MEDS: MULTIVITAMINS (DAILY MVI) TABLET (FP) PO SCH (10:33)
[2020-03-11] MEDS: PANTOPRAZOLE 40 MG TABLET PO SCH (10:33)
[2020-03-11] MEDS: FOLIC ACID 1 MG TABLET (FP) PO SCH (10:34)
[2020-03-11] MEDS: THIAMINE HCL 100 MG TABLET (FP) PO SCH (10:34)
[2020-03-11] MEDS: FERROUS SO4 325 MG TABLET (FP) PO SCH (10:35)
[2020-03-11] MEDS: GABAPENTIN 300 MG CAPSULE PO SCH (10:35)
[2020-03-11] MEDS: ASCORBIC ACID 500 MG TABLET (FP) PO SCH (10:35)
[2020-03-11] MEDS: CALCIUM (OYSTER SHELL) 500 MG TABLET (FP) PO SCH (10:36)
[2020-03-11] MEDS: AZITHROMYCIN IVPB 500 MG/250 ML BAG IVPB SCH (10:39)
== END 2020-03-11 12:33 | disposition home or self-care (01) | DRG 192 ==
LOC: JER 11:25 → JERBED 13:57 → J6S 03-09 01:55
PROVIDERS: ADMIT Internal Medicine; ATTEND Internal Medicine
DX: J44.1 Chronic obstructive pulmonary disease with (acute) exacerbation (principal); R91.1 Solitary pulmonary nodule; I25.10 Atherosclerotic heart disease of native coronary artery without angina pectoris; I10 Essential (primary) hypertension; F41.8 Other specified anxiety disorders; E78.5 Hyperlipidemia, unspecified; Z95.5 Presence of coronary angioplasty implant and graft
CPT/HCPCS: 36415; 71045-TC-FY; 71250-TC; 80053; 80061; 82550; 82728; 82803; 83036; 83615; 83721; 83880; 84443; 84484; 85025; 85379; 85610; 86140; 87040; 93005; 93010; 94761; 97116-GP; 97161-GP; 99285-25; C9803; J0131; J1100; U0003

== ENCOUNTER 2022-08-02 12:01 | Inpatient (IN) | payer OTHER, MEDICARE ==
[2022-08-02] MEDS ORDERED: MAGNESIUM SULF 50% (8.12 MEQ/2 ML-1 GM VIAL) IVPB ONE (12:32)
[2022-08-02] MEDS: ALBUTEROL SO4 2.5/IPRATROPIUM 0.5 INH SOL 3 ML VIAL.NEB. NEB SCH ×4 (12:46→13:30)
[2022-08-02] MEDS ORDERED: MAGNESIUM SULFATE IN WATER 2 GM/50 ML IVPB IVPB ONE (12:50)
[2022-08-02] MEDS ORDERED: ALBUTEROL SO4 2.5/IPRATROPIUM 0.5 INH SOL 3 ML VIAL.NEB. NEB ONE (12:50)
[2022-08-02] MEDS ORDERED: AZITHROMYCIN IVPB 500 MG in DEXTROSE 5%-WATER - 250 ML IVPB ONE (12:52)
[2022-08-02 13:12] LABS: BASO % 0.8 % (0-2.0); EOS % 1.6 % (0-4.5); HEMATOCRIT 42.1 % (32.4-45.2); HEMOGLOBIN 14.2 GM/dL (10.7-15.3); LYMPH % 22.4 % (8-40); MCH 29.3 pg (25.7-33.7); MCHC 33.7 g/dl (32.0-36.0); MEAN CELL VOLUME 86.9 fl (80-96); MEAN PLT VOLUME 7.8 fl (7.5-11.1); MONO % 7.2 % (3.8-10.2); PLATELET COUNT 449 10^3/uL (134-434); RBC 4.84 M/mm3 (3.60-5.2); RDW 13.9 % (11.6-15.6); WHITE BLOOD COUNT 8.7 K/mm3 (4.0-10.0)
[2022-08-02] MEDS ORDERED: AZITHROMYCIN IVPB 500 MG/250 ML BAG IVPB ONE (13:13)
[2022-08-02 13:19] LABS: INR 1.02 (0.83-1.09); PROTHROMBIN TIME (PATIENT) 11.8 SEC (9.7-13.0)
[2022-08-02 13:22] LABS: ACTIVATED PTT 34.7 SECONDS (25.2-36.5); VENOUS BASE EXCESS 0.3 mmol/L (-2-2); VENOUS O2 SATURATION 34.5 % (70-80); VENOUS PCO2 57.2 mmHg (38-52); VENOUS PH 7.307 (7.310-7.410)
[2022-08-02 13:45] LABS: BLOOD UREA NITROGEN 13.2 mg/dL (7-18); CALCIUM 9.5 mg/dL (8.5-10.1); MAGNESIUM 2.1 mg/dL (1.8-2.4)
[2022-08-02 13:50] LABS: BILIRUBIN,TOTAL 0.4 mg/dL (0.2-1); TOT PROT 6.8 g/dl (6.4-8.2)
[2022-08-02] MEDS ORDERED: ALBUTEROL SO4 HFA INHALER IH PRN (15:39)
[2022-08-02] MEDS ORDERED: ACETAMINOPHEN 325 MG TABLET (FP) PO PRN (15:39)
[2022-08-02] MEDS ORDERED: PANTOPRAZOLE 20 MG TABLET PO PRN (15:39)
[2022-08-02] MEDS ORDERED: clonazePAM 0.5 MG TABLET PO PRN (15:39)
[2022-08-02 16:25] LABS: EPI CELLS >36 /uL (0-25.1); HYALINE CASTS 2 /uL (0-3.1); URINE APPEARANCE CLEAR; URINE BACTERIA 6832 /uL (0-1359); URINE BILIRUBIN 1+ (NEGATIVE); URINE COLOR DK YELLOW; URINE GLUCOSE (UA) NEGATIVE (NEGATIVE); URINE KETONE TRACE (NEGATIVE); URINE LEUK ESTERASE 1+ (NEGATIVE); URINE NITRITE POSITIVE (NEGATIVE); URINE PROTEIN TRACE (NEGATIVE); URINE RBC 41 /uL (0-23.9); URINE WBC 89 /uL (0-25.8)
[2022-08-02] MEDS ORDERED: CEFTRIAXONE 1,000 MG in DEXTROSE 5%-WATER - 50 ML IVPB ONE (16:38)
[2022-08-02] MEDS ORDERED: CEFTRIAXONE 1 GM/50 ML BAG ONE (16:42)
[2022-08-02 18:30] VITALS: BMI 29.2
[2022-08-02] MEDS: SENNOSIDES/DOCUSATE COMBO (SENNA PLUS) TABLET (UD) PO SCH (21:48)
[2022-08-02] MEDS: ASPIRIN 81 MG CHEWABLE TABLETS PO SCH (21:48)
[2022-08-02] MEDS: RANOLAZINE E.R. 500 MG TABLET (FP) PO SCH (21:48)
[2022-08-02] MEDS: GABAPENTIN 400 MG CAPSULE PO SCH (21:48)
[2022-08-02] MEDS: methylPREDNISolone NA SUCC 40 MG/1 ML VIAL IVPUSH SCH (21:49)
[2022-08-02] MEDS: HEPARIN NA (PORCINE) 5,000 UNITS/ML 1ML VIAL SQ SCH (21:49)
[2022-08-02] MEDS: ATORVASTATIN CA 10 MG TABLET (FP) PO SCH (21:49)
[2022-08-03] MEDS: GABAPENTIN 300 MG CAPSULE PO SCH (06:09)
[2022-08-03] MEDS: ALBUTEROL SO4 2.5/IPRATROPIUM 0.5 INH SOL 3 ML VIAL.NEB. NEB PRN ×2 (07:36→11:23)
[2022-08-03] MEDS ORDERED: TIOTROPIUM BROMIDE 2.5 MCG (SPIRIVA) RESPIMAT INHALER IH SCH ×2 (10:00)
[2022-08-03] MEDS ORDERED: METOPROLOL TARTRATE 25 MG TABLET (FP) PO SCH (10:00)
[2022-08-03] MEDS ORDERED: ASPIRIN 81 MG CHEWABLE TABLETS PO SCH (10:00)
[2022-08-03] MEDS: metoPROLOL SUCCINATE 25 MG TAB.SR.24H (FP) PO SCH (10:09)
[2022-08-03] MEDS: THIAMINE HCL 100 MG TABLET (FP) PO SCH (10:09)
[2022-08-03] MEDS: FAMOTIDINE 40 MG TABLET PO SCH (10:09)
[2022-08-03] MEDS: FERROUS SO4 325 MG TABLET (FP) PO SCH (10:10)
[2022-08-03] MEDS: RANOLAZINE E.R. 500 MG TABLET (FP) PO SCH ×2 (10:10→21:27)
[2022-08-03] MEDS: MULTIVITAMINS (DAILY MVI) TABLET (FP) PO SCH (10:10)
[2022-08-03] MEDS: FOLIC ACID 1 MG TABLET (FP) PO SCH (10:10)
[2022-08-03] MEDS: methylPREDNISolone NA SUCC 40 MG/1 ML VIAL IVPUSH SCH ×2 (10:11→17:43)
[2022-08-03] MEDS: HEPARIN NA (PORCINE) 5,000 UNITS/ML 1ML VIAL SQ SCH ×2 (10:11→21:30)
[2022-08-03] MEDS: clonazePAM 0.25 MG ODT TABLETS SL SCH ×2 (10:11→21:30)
[2022-08-03] MEDS: AZITHROMYCIN IVPB 500 MG/250 ML BAG IVPB SCH (10:12)
[2022-08-03] MEDS: CALCIUM (OYSTER SHELL) 500 MG TABLET (FP) PO SCH (10:12)
[2022-08-03] MEDS: SENNOSIDES/DOCUSATE COMBO (SENNA PLUS) TABLET (UD) PO SCH ×2 (10:13→21:29)
[2022-08-03] MEDS: ZIPRASIDONE 20 MG CAPSULE PO SCH (21:24)
[2022-08-03] MEDS: DULoxetine HCL 30 MG CAPSULE.DR PO SCH (21:26)
[2022-08-03] MEDS: MELATONIN 5 MG TABLETS PO SCH (21:27)
[2022-08-03] MEDS: ATORVASTATIN CA 10 MG TABLET (FP) PO SCH (21:28)
[2022-08-03] MEDS: ASPIRIN 81 MG CHEWABLE TABLETS PO SCH (21:29)
[2022-08-03] MEDS: GABAPENTIN 400 MG CAPSULE PO SCH (21:29)
[2022-08-03] MEDS: FLUTICASONE/UMECLIDIN/VILANTER(200-62.5-25 TRELEGY ELLIPTA) INAHLER IH SCH (21:33)
[2022-08-03] MEDS ORDERED: RANOLAZINE E.R. 500 MG TABLET (FP) PO SCH (22:00)
[2022-08-04] MEDS: methylPREDNISolone NA SUCC 40 MG/1 ML VIAL IVPUSH SCH ×3 (01:36→17:30)
[2022-08-04] MEDS: GABAPENTIN 300 MG CAPSULE PO SCH (06:33)
[2022-08-04] MEDS: ALBUTEROL SO4 2.5/IPRATROPIUM 0.5 INH SOL 3 ML VIAL.NEB. NEB PRN (07:37)
[2022-08-04] MEDS: THIAMINE HCL 100 MG TABLET (FP) PO SCH (10:19)
[2022-08-04] MEDS: RANOLAZINE E.R. 500 MG TABLET (FP) PO SCH ×2 (10:19→21:58)
[2022-08-04] MEDS: HEPARIN NA (PORCINE) 5,000 UNITS/ML 1ML VIAL SQ SCH ×2 (10:19→21:59)
[2022-08-04] MEDS: clonazePAM 0.25 MG ODT TABLETS SL SCH ×2 (10:22→21:58)
[2022-08-04] MEDS: FOLIC ACID 1 MG TABLET (FP) PO SCH (10:22)
[2022-08-04] MEDS: MULTIVITAMINS (DAILY MVI) TABLET (FP) PO SCH (10:22)
[2022-08-04] MEDS: FERROUS SO4 325 MG TABLET (FP) PO SCH (10:22)
[2022-08-04] MEDS: metoPROLOL SUCCINATE 25 MG TAB.SR.24H (FP) PO SCH (10:22)
[2022-08-04] MEDS: CALCIUM (OYSTER SHELL) 500 MG TABLET (FP) PO SCH (10:23)
[2022-08-04] MEDS: FAMOTIDINE 40 MG TABLET PO SCH (10:24)
[2022-08-04] MEDS: AZITHROMYCIN IVPB 500 MG/250 ML BAG IVPB SCH (10:24)
[2022-08-04] MEDS: SENNOSIDES/DOCUSATE COMBO (SENNA PLUS) TABLET (UD) PO SCH ×2 (10:24→21:58)
[2022-08-04] MEDS: ALBUTEROL SO4 2.5/IPRATROPIUM 0.5 INH SOL 3 ML VIAL.NEB. NEB SCH ×2 (13:21→20:10)
[2022-08-04 14:56] VITALS: RESP 18
[2022-08-04] MEDS: ATORVASTATIN CA 10 MG TABLET (FP) PO SCH (21:58)
[2022-08-04] MEDS: GABAPENTIN 400 MG CAPSULE PO SCH (21:58)
[2022-08-04] MEDS: ASPIRIN 81 MG CHEWABLE TABLETS PO SCH (21:58)
[2022-08-04] MEDS: DULoxetine HCL 30 MG CAPSULE.DR PO SCH (21:58)
[2022-08-04] MEDS: MELATONIN 5 MG TABLETS PO SCH (21:58)
[2022-08-04] MEDS: ZIPRASIDONE 20 MG CAPSULE PO SCH (21:58)
[2022-08-04] MEDS: FLUTICASONE/UMECLIDIN/VILANTER(200-62.5-25 TRELEGY ELLIPTA) INAHLER IH SCH (21:59)
[2022-08-04] MEDS: SULFAMETHOXAZOLE/TRIMETHOPRIM 800MG/160MG D.S. TABLET PO SCH (21:59)
[2022-08-05] MEDS: methylPREDNISolone NA SUCC 40 MG/1 ML VIAL IVPUSH SCH ×2 (02:59→10:26)
[2022-08-05] MEDS: GABAPENTIN 300 MG CAPSULE PO SCH (06:15)
[2022-08-05] MEDS: ALBUTEROL SO4 2.5/IPRATROPIUM 0.5 INH SOL 3 ML VIAL.NEB. NEB SCH ×2 (08:00→15:28)
[2022-08-05] MEDS: metoPROLOL SUCCINATE 25 MG TAB.SR.24H (FP) PO SCH (10:33)
[2022-08-05] MEDS: RANOLAZINE E.R. 500 MG TABLET (FP) PO SCH ×2 (10:34→11:30)
[2022-08-05] MEDS: SULFAMETHOXAZOLE/TRIMETHOPRIM 800MG/160MG D.S. TABLET PO SCH (10:34)
[2022-08-05] MEDS: MULTIVITAMINS (DAILY MVI) TABLET (FP) PO SCH (10:34)
[2022-08-05] MEDS: THIAMINE HCL 100 MG TABLET (FP) PO SCH (10:34)
[2022-08-05] MEDS: FOLIC ACID 1 MG TABLET (FP) PO SCH (10:34)
[2022-08-05] MEDS: SENNOSIDES/DOCUSATE COMBO (SENNA PLUS) TABLET (UD) PO SCH (10:34)
[2022-08-05] MEDS: clonazePAM 0.25 MG ODT TABLETS SL SCH (10:35)
[2022-08-05] MEDS: HEPARIN NA (PORCINE) 5,000 UNITS/ML 1ML VIAL SQ SCH (10:35)
[2022-08-05] MEDS: CALCIUM (OYSTER SHELL) 500 MG TABLET (FP) PO SCH (10:37)
[2022-08-05] MEDS: FERROUS SO4 325 MG TABLET (FP) PO SCH (10:38)
[2022-08-05] MEDS: FAMOTIDINE 40 MG TABLET PO SCH (12:47)
[2022-08-05 13:54] VITALS: BP 122/69; PULSE 74; TEMP 98.1
== END 2022-08-05 16:30 | disposition home or self-care (01) | DRG 191 ==
LOC: JER 12:01 → JERBED 15:12 → J6S 18:55
PROVIDERS: ADMIT Internal Medicine; ATTEND Internal Medicine
DX: J44.1 Chronic obstructive pulmonary disease with (acute) exacerbation (principal); E87.29 Other acidosis; N39.0 Urinary tract infection, site not specified; J20.9 Acute bronchitis, unspecified; I10 Essential (primary) hypertension; I25.10 Atherosclerotic heart disease of native coronary artery without angina pectoris; F41.8 Other specified anxiety disorders; Z99.81 Dependence on supplemental oxygen; I25.2 Old myocardial infarction; E78.5 Hyperlipidemia, unspecified; B96.1 Klebsiella pneumoniae [K. pneumoniae] as the cause of diseases classified elsewhere; B95.2 Enterococcus as the cause of diseases classified elsewhere; Z95.5 Presence of coronary angioplasty implant and graft; Z86.718 Personal history of other venous thrombosis and embolism
CPT/HCPCS: 0241U-QW; 36415; 71045-TC-FY; 80053; 81003; 82803; 83735; 85025; 85610; 85730; 86850; 86900; 86901; 87086; 87186; 93005; 93010; 94640; 94761; 99285-25; J1644

== ENCOUNTER 2022-11-25 19:17 | Emergency (ER) | payer OTHER, MEDICARE ==
[2022-11-25 19:39] VITALS: BP 143/80; PULSE 90; RESP 20; TEMP 97.9; BMI 29.2
[2022-11-25] MEDS ORDERED: SULFAMETHOXAZOLE/TRIMETHOPRIM 800MG/160MG D.S. TABLET PO ONE (19:52)
[2022-11-25] MEDS ORDERED: SULFAMETHOXAZOLE/TRIMETHOPRIM 800MG/160MG D.S. TABLET ONE (19:56)
== END 2022-11-25 19:59 | disposition home or self-care (01) ==
LOC: FER 19:17
DX: L03.113 Cellulitis of right upper limb (principal); L53.9 Erythematous condition, unspecified
CPT/HCPCS: 99283-25

== ENCOUNTER 2023-04-14 04:34 | Day surgery (SDC) | payer OTHER, MEDICARE ==
[2023-04-12 10:40] VITALS: BMI 27.9
[2023-04-14 10:30] VITALS: TEMP 98
[2023-04-14 10:31] VITALS: RESP 18
[2023-04-14 10:56] VITALS: BP 116/49; PULSE 69
== END 2023-04-14 11:15 | disposition home or self-care (01) ==
LOC: JASU-ENDO 04:34
PROVIDERS: ATTEND Internal Medicine Gastroenterology
PROC: 0DBL8ZX Excision of Transverse Colon, Via Natural or Artificial Opening Endoscopic, Diagnostic (ICD-10-PCS; 2023-04-14)
PROC: 0DBP8ZX Excision of Rectum, Via Natural or Artificial Opening Endoscopic, Diagnostic (ICD-10-PCS; 2023-04-14)
PROC: 0DBC8ZX Excision of Ileocecal Valve, Via Natural or Artificial Opening Endoscopic, Diagnostic (ICD-10-PCS; principal; 2023-04-14 10:00)
DX: Z12.11 Encounter for screening for malignant neoplasm of colon (principal); D12.0 Benign neoplasm of cecum; D12.3 Benign neoplasm of transverse colon; D12.8 Benign neoplasm of rectum; K57.30 Diverticulosis of large intestine without perforation or abscess without bleeding; K64.8 Other hemorrhoids; Z86.010 Personal history of colon polyps; Z80.0 Family history of malignant neoplasm of digestive organs
CPT/HCPCS: 88305-TC